=== PATIENT | male | born 1970 | race Caucasian/White ===

== ENCOUNTER → 2019-04-03 16:01 | Outpatient (CLI) | payer OTHER, SELFPAY ==
[2015-11-08 12:10] VITALS: BMI 26.6
--- NOTE | 2019-04-03 16:06 | RAD_ITS ---
STUDY: X-RAY - PELVIS AND LEFT HIP REASON FOR EXAM: Chronic hip pain, recently worsening, no specific injury. TECHNIQUE: 2 views of the pelvis and hip. COMPARISON: Radiographs 03/09/2015. FINDINGS: There is interval development of a small soft tissue calcification at the inferior lateral aspect of the left obturator ring. Normal bilateral iliac wings, sacroiliac joints and visualized sacrum. Normal bilateral superior and inferior pubic rami. Normal pubic symphysis. Normal bilateral ischial tuberosities. There is an osteochondroma of the medial aspect of the left femoral neck with no significant change. There is a small marginal osteophyte of the lateral aspect of the left acetabulum. Normal left hip joint. RAD/HIP, UNI W/ Pelvis 2-3 Views IMPRESSION: Osteochondroma of the left femoral neck. Small soft tissue calcification at the inferior lateral aspect of the left obturator ring. Electronically Signed: Dexter Franz MD at 15:30 EST Tel , Service support ,
== END ==
PROVIDERS: PCP Family Medicine; Referring Provider Family Medicine; Visit Provider Family Medicine
DX: M25.552 Pain in left hip (principal)
CPT/HCPCS: 73502

== ENCOUNTER → 2019-04-09 07:15 | Outpatient (CLI) | payer OTHER, SELFPAY ==
[2019-04-09 10:26] LABS: Anion Gap 5 (5-15); BUN 16 mg/dL (7-18); BUN/Creat Ratio 18.4 RATIO (10-20); Calcium,Total 8.9 mg/dL (8.5-10.1); Chloride 109 mmol/L (98-107); Cholesterol 201 mg/dL (200); Creatinine, Serum 0.87 mg/dL (0.70-1.30); EST Glomerular Filtration Rate 99 mL/min (>60); Est Glom Filt Rate - Afr Amer 120 mL/min (>60); Glucose 83 mg/dL (74-106); High Density Lipoprotein 77 mg/dL; Potassium 4.1 mmol/L (3.5-5.1); Sodium Level 143 mmol/L (136-145); Triglycerides 45 mg/dL; Very Low Density Lipoprotein 9 mg/dL (5-40)
[2019-04-09 12:14] LABS: Vitamin D,25 Hydroxy 28.7 ng/mL
== END ==
PROVIDERS: PCP Family Medicine; Referring Provider Family Medicine; Visit Provider Family Medicine
DX: Z00.00 Encounter for general adult medical examination without abnormal findings (principal)
CPT/HCPCS: 36415; 80048; 80061; 82306

== ENCOUNTER 2021-03-25 10:47 | Emergency (ER) | payer OTHER, SELFPAY ==
[2021-03-25 10:50] VITALS: BP 141/93; PULSE 67; RESP 17; TEMP 36.4; O2SAT 98; BMI 25.4
--- NOTE | 2021-03-25 11:32 | US_ITS ---
STUDY: SCROTUM ULTRASOUND REASON FOR EXAM: Male, 50 years old. Trauma, Pain, Swelling TECHNIQUE: Ultrasound evaluation of the scrotum was performed with color Doppler and static ozuna-scale imaging. COMPARISON: Comparison is made with prior study date 03/25/2013. FINDINGS: RIGHT TESTICLE INTRATESTICULAR: There is a normal size of the right testicle. The right testicle measures 4.8 cm x 3.7 cm x 2.8 cm. There is a homogenous echotexture. There is normal arterial and normal venous vascularity. There is no demonstrated right testicular mass or cyst. EXTRATESTICULAR: The epididymis is normal in size. The epididymis head measures 0.5 cm x 1.3 cm x 1.2 cm. There is normal vascularity of the epididymis. There is a well-defined cystic structure within the epididymis, without internal echoes, consistent with an epididymal cyst. This measures 6 mm x 5 mm x 5 mm. There is a large hydrocele. There is no demonstrated varicocele. There is no demonstrated extratesticular mass or cyst. LEFT TESTICLE INTRATESTICULAR: There is a normal size of the left testicle. The left testicle measures 4.2 cm x 3.7 cm x 2.2 cm. There is a homogenous echotexture. There is normal arterial and normal venous vascularity. There is a 4 mm x 3 mm x 3 mm left testicular cyst. EXTRATESTICULAR: The epididymis is normal in size. The epididymis head measures 1.3 cm x 1.6 cm x 60.7 cm. There is normal vascularity of the epididymis. There is a well-defined cystic structure within the epididymis, without internal echoes, consistent with an epididymal cyst. This measures 4 mm x 7 mm x 3 mm. There is a large hydrocele. There is no demonstrated varicocele. There is no demonstrated extratesticular mass or cyst. US/Testicular with Arterial Flow IMPRESSION: Bilateral large hydroceles. Small cyst in the left testicle. Small bilateral epididymal cysts. Electronically Signed: Valeriano Sin MD at 13:12 EST ,
--- NOTE | 2021-03-25 11:32 | EX.ED.GUMALE ---
HPI History of Present Illness Chief Complaint: Male Pain/Injury Narrative Narrative: Patient denies significant past medical history presents with his for a work-related injury that he sustained at around noon yesterday. He states that he was hanging onto a board, and someone moved another board beneath him. He ended up straddling a steel machinery part. He has pain and swelling to his scrotum/both testicles. He denies other injury. He denies any penile discharge or dysuria, no hematuria. PFSH PFSH Medical History no medical history Home Medications flavoring agent (bulk) [Cinnamon] 1,000 mg PO BID 10/06/15 [History Last Taken Unknown] multivitamin with folic acid [Thera] 1 tab PO DAILY 10/06/15 [History Last Taken Unknown] ascorbic acid (vitamin C) [Vitamin C with Svitlana Hips] 500 mg PO DAILY 11/08/15 [History Last Taken Unknown] coenzyme Q10 200 mg PO DAILY 11/08/15 [History Last Taken Unknown] lansoprazole [Prevacid] 20 mg DAILY 11/08/15 [History Last Taken Unknown] prednisone 10 mg PO DAILY 11/08/15 [History Last Taken Unknown] vitamin E 400 unit PO DAILY 11/08/15 [History Last Taken Unknown] Allergy/AdvReac Type Severity Reaction Status Date / Time Penicillins AdvReac Other Verified 03/25/21 10:48 Social History Smoking Status: Never smoker ROS ROS ED ROS Narrative Constitutional: No fever, no chills. HEENT: No sore throat. No neck pain. No loss of vision. No rhinorrhea. Cardiovascular: No chest pain. No palpitations. No pedal edema. Respiratory: No cough, no shortness of breath. Abdominal: No abdominal pain. No nausea. No vomiting. Genitourinary: No dysuria. No hematuria. Positive testicular/scrotum pain and swelling. Musculoskeletal: No myalgias. No arthralgias. Neurologic: No headaches. No dizziness. No lightheadedness. Skin: No rash. No change in color. Psychiatric: No depression. No anxiety. EXAM Physical Exam Narrative Exam Narrative: Afebrile. Vital signs noted. HEENT: Normocephalic. Atraumatic. PERRL, EOMI. Neck soft and supple. No point tenderness or step off. Cardiovascular: Regular rate and rhythm. No murmurs, rubs, or gallops appreciated. Respiratory: No tachypnea. Lungs clear to auscultation bilaterally. Gastrointestinal: Abdomen soft, nontender, with normoactive bowel sounds. No rebound or guarding. Neurological: Awake. Alert. Nonfocal, nonlateralizing. Skin: No rash. Normal color. No pallor. Musculoskeletal: No pedal edema. Full range of motion extremities. Genitourinary: Chaperoned examination reveals diffuse swelling to the scrotum with testicular tenderness bilaterally. Const Vital Signs: 03/25/21 10:50 03/25/21 13:13 Temperature 97.6 F L Temperature Source Temporal Pulse Rate 67 55 L Respiratory Rate 17 16 Blood Pressure 141/93 H 128/91 H Blood Pressure Mean 109 103 Pulse Ox 98 100 Oxygen Delivery Method Room Air Room Air MDM MDM MDM Narrative Medical decision making narrative: Suspicion is high for hydrocele versus hematoma of the scrotum. Ultrasound was obtained of the testicles with arterial flow. Additionally, he declined any analgesics. Ultrasound has returned. There are bilateral large hydroceles. There is a small cyst in the left testicle but good blood flow. He has small bilateral epididymal cysts. At this point in time, I do feel that he can be discharged home to follow-up with Dr. Cantor. He was told he may need surgical drainage of his large hydroceles. He can wear more constricting undergarments as needed for support of his testicles. Return instructions to the emergency department were reviewed. Disposition is discharged home in stable condition. Radiography Diagnostic Testing: Clinical Impression(s) from Imaging Studies Testicular Ultrasound 03/25/21 11:32 IMPRESSION: Bilateral large hydroceles. Small cyst in the left testicle. Small bilateral epididymal cysts. Electronically Signed: Valeriano Sin MD at 13:12 EST , Discharge Plan Triage Chief Complaint: Male Pain/Injury ED Provider: Valeriy Carbajal Dx/Rx/DC Orders Clinical Impression: Contusion of scrotum and testes, initial encounter, Hydrocele Instructions: ED Hydrocele, Type Not Specified, ED Contusion, Testicles or Scrotum Prescriptions: No Action Cinnamon Flavoring 3.7 ML oil 1,000 mg PO BID RF: 0 multivitamin with folic acid [Thera] 1 TABLET tablet 1 tab PO DAILY RF: 0 prednisone 10 MG tablet 10 mg PO DAILY RF: 0 ascorbic acid (vitamin C) [Vitamin C With Svitlana Hips] 500 MG tablet 500 mg PO DAILY RF: 0 lansoprazole [Prevacid] 15 MG capsule 20 mg DAILY RF: 0 vitamin E 400 UNIT capsule 400 unit PO DAILY RF: 0 coenzyme Q10 200 MG capsule 200 mg PO DAILY RF: 0 Primary Care Provider: John Garcia Referrals: Grover Cantor MD [STAFF PHYSICIAN] - 5-7 Days John Garcia MD [Primary Care Provider] - Disposition Disposition: Home, Self Care
[2021-03-25 13:13] VITALS: BP 128/91; PULSE 55; RESP 16; O2SAT 100
--- NOTE | 2021-03-25 14:23 | ED.RN ---
angelia filled out even though accident/fall happened yest. 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 awaiting for dr return to work form for omari.
== END 2021-03-25 14:43 | disposition home or self-care (01) ==
PROVIDERS: Emergency Provider Emergency Medicine; PCP Family Medicine; Visit Provider Emergency Medicine
DX: S30.22XA Contusion of scrotum and testes, initial encounter (principal); N44.2 Benign cyst of testis; N43.3 Hydrocele, unspecified; W31.9XXA Contact with unspecified machinery, initial encounter; Y93.9 Activity, unspecified; Y92.9 Unspecified place or not applicable
CPT/HCPCS: 76870; 93976; 99282

== ENCOUNTER → 2021-09-28 | Outpatient (CLI) | payer OTHER, SELFPAY ==
--- NOTE | 2021-09-28 06:10 | EKG12_ITS ---
Test Reason : PRE OP Blood Pressure : / mmHG Vent. Rate : 053 BPM Atrial Rate : 053 BPM P-R Int : 182 ms QRS Dur : 084 ms QT Int : 400 ms P-R-T Axes : 065 048 067 degrees QTc Int : 375 ms Sinus bradycardia Otherwise normal ECG Confirmed by SHELLY HENDERSON, MARIANO ([id number]), editor dictionary AMANDA GARCIA ([id number]) on 09/28/2021 12:54:25 PM Referred By: Grover Cantor Confirmed By:MARIANO BRAVO MD
[2021-09-28 07:51] LABS: Hematocrit 43.8 % (40-54); Hemoglobin 14.8 g/dL (13.0-16.5); Mean Corp Hgb Conc 33.8 g/dL (32-36); Mean Corpuscular Hgb 32.5 pg (27.0-32.0); Mean Corpuscular Volume 96.1 fL (80-94); Platelet Count 219 K/mm3 (150-450); RBC Distribution Width CV 12.6 % (11.6-14.6); RBC Distribution Width SD 44.1 fl (35.1-43.9); Red Blood Count 4.56 M/mm3 (4.6-6.2); White Blood Count 4.3 K/mm3 (4.4-11.0)
[2021-09-28 08:31] LABS: Anion Gap 5 (5-15); BUN 20 mg/dL (7-18); BUN/Creat Ratio 22.5 RATIO (10-20); Calcium,Total 8.9 mg/dL (8.5-10.1); Chloride 107 mmol/L (98-107); Creatinine, Serum 0.89 mg/dL (0.70-1.30); EST Glomerular Filtration Rate 96 mL/min (>60); Est Glom Filt Rate - Afr Amer 116 mL/min (>60); Glucose 111 mg/dL (74-106); Potassium 3.6 mmol/L (3.5-5.1); Sodium Level 142 mmol/L (136-145)
== END | disposition home or self-care (01) ==
PROVIDERS: PCP Family Medicine; Referring Provider Urology; Visit Provider Urology
DX: Z01.812 Encounter for preprocedural laboratory examination (principal); Z01.810 Encounter for preprocedural cardiovascular examination
CPT/HCPCS: 36415; 80048; 85027; 93005

== ENCOUNTER 2024-07-13 12:55 | Emergency (ER) | payer BC, SELFPAY ==
[2024-07-13 12:55] VITALS: BP 161/100; PULSE 58; RESP 16; TEMP 36.4; O2SAT 99; BMI 30.2
--- NOTE | 2024-07-13 13:09 | EX.ED.UPPERE ---
HPI <MORGAN Rasheed - Last Filed: 07/13/24 15:04> History of Present Illness Chief Complaint: Upper Extremity Injury Narrative Narrative: 54-year-old male injured his right elbow 2 weeks ago. He was 8 foot high on a ladder trimming a tree branch and the branch got caught in the ladder causing him to fall. The main impact was on his right elbow. He had significant swelling and bruising on the inner bicep/elbow area and bruising along the forearm. There was a scrape but no laceration. No head injury. He really did not have much pain and he states the swelling has significantly gone down, but since there is still a hard knot of swelling present he went to urgent care today. They did not have any imaging available and also were concerned about a blood clot. Patient has no history of DVT/PE and no risk factors for blood clot. He is not on blood thinners. PFSH <MORGAN Rasheed - Last Filed: 07/13/24 15:04> PFS Medical History no medical history Home Medications ?Medication ?Instructions ?Recorded ?Last Taken ?Type flavoring agent (bulk) (Cinnamon 1,000 mg PO BID 10/06/15 Unknown History Flavoring oil) multivitamin with folic acid 400 1 tab PO DAILY 10/06/15 Unknown History mcg tablet (Thera) ascorbic acid (vitamin C) 500 mg 500 mg PO DAILY 11/08/15 Unknown History tablet (Vitamin C With Svitlana Hips) coenzyme Q10 200 mg capsule 200 mg PO DAILY 11/08/15 Unknown History lansoprazole 15 mg capsule,delayed 20 mg DAILY 11/08/15 Unknown History release (Prevacid) prednisone 10 mg tablet 10 mg PO DAILY 11/08/15 Unknown History vitamin E 268 mg (400 unit) capsule 400 unit PO DAILY 11/08/15 Unknown History Allergy/AdvReac Type Severity Reaction Status Date / Time Penicillins AdvReac Other Verified 07/13/24 12:56 Social History Smoking Status: Never smoker ROS <MORGAN Rasheed - Last Filed: 07/13/24 15:04> ROS ED ROS Narrative Constitutional: Negative for fever, chills, malaise. CVS: Negative for chest pain. Respiratory: Negative for shortness of breath. Neuro: Negative for motor/sensory dysfunction. Musc: Negative for joint pain. EXAM <MORGAN Rasheed - Last Filed: 07/13/24 15:04> Physical Exam Narrative Exam Narrative: CONST: Patient sitting in no acute distress. EYES: Normal inspection. NECK: Normal inspection. RESP: No respiratory distress, CTAB. CVS: Regular rate and rhythm, no murmur, no gallop. SKIN: Color normal, no rash, warm, dry, intact. EXTREMITIES: Right upper extremity without gross deformity. There is a golf sized firm enlargement on the right medial bicep just proximal to the elbow. Nontender. No overlying erythema, warmth, no crepitus or fluctuance. He has no bony tenderness of the shoulder humerus elbow forearm wrist or hand. He has full range of motion of all joints. 2+ radial pulses. Normal motor and sensory function in median radial and ulnar distributions. NEURO: Alert and answering questions appropriately. PSYCH: Normal affect. Const Vital Signs: 07/13/24 12:55 Temperature 97.5 F L Temperature Source Temporal Pulse Rate 58 L Respiratory Rate 16 Blood Pressure 161/100 H Blood Pressure Mean 120 Pulse Ox 99 Oxygen Delivery Method Room Air MDM <MORGAN Rasheed - Last Filed: 07/13/24 15:04> [facility] MDM Narrative Medical decision making narrative: Patient fell off a ladder 2 weeks ago and injured his right elbow. He had swelling and bruising over the distal medial bicep which has been improving but not resolved prompting him to seek evaluation. He has a golf ball sized area that is firm to touch that is consistent with a hematoma. No compartment syndrome. No signs of infection. It is not consistent with a DVT. He has full range of motion and is neurovascular intact. Elbow x-ray is negative. I discussed conservative management for hematoma and he was discharged in stable condition. Differential includes hematoma, fracture. History and exam are not consistent with DVT and he has no risk factors for blood clots so ultrasound imaging is not indicated. I have personally performed a face to face assessment of the patient and have reviewed the JESIKA Note. I performed a substantive portion of the visit including all aspects of the following. My ortiz findings include: History is 54-year-old male fell from a ladder about 2 weeks ago injuring his right upper extremity around the elbow. He said there was a lot of bruising. Most of that has resolved he still has a hematoma proximal to his right elbow on the medial aspect. Today was seen in urgent care they were concerned it was a blood clot and sent him in the emergency department. He denies any trouble moving his arm. No other complaints. Exam is [54-year-old male vital signs stable afebrile. H EENT exam pupils round reactive light. No trauma to his face or scalp. Nontender no hematoma. Neck nontender trachea midline. Back nontender. Lungs clear. Heart regular rhythm rate about 60 no murmur. Chest wall ribs nontender. Abdomen soft nontender. Pelvic girdle intact. Moving all 4 extremities. Neurovascularly intact. Normal range of motion. The right elbow medially and proximally there is a hematoma the size of a $0.50 piece. Mildly tender. There is no bony deformity. He has full flexion-extension rotation of his right shoulder. Full flexion extension supination and pronation of the right elbow with no bony deformity. Right forearm, wrist and hand are nontender. Normal radial pulse. No swelling. 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 Normal sensation. Neurologic exam is normal. He is awake and alert. Answering questions following commands. GCS 15.] Medical Decision Making [54-year-old male has a right arm hematoma. X-ray is going to be obtained bindings is just a soft tissue hematoma. Will rule out fracture.] Other additions or changes: [None] <Dr. Paul Mulligan MD - Last Filed: 07/13/24 13:25> [facility] Narrative Medical decision making narrative: I have personally performed a face to face assessment of the patient and have reviewed the JESIKA Note. I performed a substantive portion of the visit including all aspects of the following. My ortiz findings include: History is 54-year-old male fell from a ladder about 2 weeks ago injuring his right upper extremity around the elbow. He said there was a lot of bruising. Most of that has resolved he still has a hematoma proximal to his right elbow on the medial aspect. Today was seen in urgent care they were concerned it was a blood clot and sent him in the emergency department. He denies any trouble moving his arm. No other complaints. Exam is [54-year-old male vital signs stable afebrile. H EENT exam pupils round reactive light. No trauma to his face or scalp. Nontender no hematoma. Neck nontender trachea midline. Back nontender. Lungs clear. Heart regular rhythm rate about 60 no murmur. Chest wall ribs nontender. Abdomen soft nontender. Pelvic girdle intact. Moving all 4 extremities. Neurovascularly intact. Normal range of motion. The right elbow medially and proximally there is a hematoma the size of a $0.50 piece. Mildly tender. There is no bony deformity. He has full flexion-extension rotation of his right shoulder. Full flexion extension supination and pronation of the right elbow with no bony deformity. Right forearm, wrist and hand are nontender. Normal radial pulse. No swelling. 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 Normal sensation. Neurologic exam is normal. He is awake and alert. Answering questions following commands. GCS 15.] Medical Decision Making [54-year-old male has a right arm hematoma. X-ray is going to be obtained bindings is just a soft tissue hematoma. Will rule out fracture.] Other additions or changes: [None] History & Record Review Discussion w/independent historian: Patient and Family Additional record(s) reviewed:: Prior inpatient record, Prior outpatient record, Prior ED visit and Prior labs Radiography Diagnostic Testing: Right elbow x-ray, 3 views, reviewed by myself shows no acute fracture or dislocation. Soft tissue swelling. Discharge Plan Triage Chief Complaint: Upper Extremity Injury ED Midlevel Provider: Ela Fry ED Provider: Paul Mulligan Dx/Rx/DC Orders Clinical Impression: Contusion of elbow, right, Hematoma Instructions: ED Contusion, Elbow, ED Hematoma Prescriptions: No Action Cinnamon Flavoring 3.7 ML oil 1,000 mg PO BID multivitamin with folic acid [Thera] 1 TABLET tablet 1 tab PO DAILY prednisone 10 MG tablet 10 mg PO DAILY ascorbic acid (vitamin C) [Vitamin C With Svitlana Hips] 500 MG tablet 500 mg PO DAILY lansoprazole [Prevacid] 15 MG capsule 20 mg DAILY vitamin E 400 UNIT capsule 400 unit PO DAILY coenzyme Q10 200 MG capsule 200 mg PO DAILY Primary Care Provider: John Garcia Referrals: John Garcia MD [Primary Care Provider] - As Needed Activity Restrictions/Additional Instructions: You have a soft tissue collection of blood called a hematoma of your right elbow. There is no fracture or dislocation. This may take several weeks to resolve. Ice to the area. Warm compresses. Motrin for any pain or swelling. This should progressively get better over the next several weeks. Print Language: Swedish Disposition Disposition: Home, Self Care Discharge Date/Time: 07/13/24 14:03
--- NOTE | 2024-07-13 13:35 | RAD_ITS ---
PROCEDURE: ELBOW MIN 3 VIEWS 07/13/2024 REASON FOR EXAM: RIGHT TECHNIQUE: Three views of the right elbow. COMPARISON: None. FINDINGS: No evidence of acute fracture or dislocation. Mild degenerative changes of the elbow. No elbow joint effusion. Olecranon enthesophyte. RAD/Elbow min 3 Views IMPRESSION: No acute osseous abnormality. Reading Location: [place] [id number]
[2024-07-13 14:00] VITALS: BP 138/78; PULSE 58; RESP 16; TEMP 36.4; O2SAT 99
== END 2024-07-13 14:03 | disposition home or self-care (01) ==
PROVIDERS: Emergency Provider Emergency Medicine; PCP Family Medicine; Visit Provider Emergency Medicine
DX: S50.01XA Contusion of right elbow, initial encounter (principal); W11.XXXA Fall on and from ladder, initial encounter; Y93.89 Activity, other specified
CPT/HCPCS: 73080; 99282

== ENCOUNTER → 2024-11-07 | Outpatient (CLI) | payer BC, SELFPAY ==
--- OUTSIDE RECORDS SUMMARY | 2024-11-07 12:36 | XMS RPT_ITS | CCD ---
Author Organization [facility] Care Team Providers Care Svp Group Director Name Role Phone Jose HENDERSON, Dr. Lopez Primary Care Provider Dr. Paul Mulligan MD Emergency Provider [phone] Unavailable Primary Care Provider UnavailJENNI Obregon Attending Unavailable John Garcia Primary Care Unavailable Paul Mulligan Attending Unavailable Allergies Allergy Classification Reported Allergen(s) Allergy Type Date of Onset Reaction(s) Facility (2 sources) Penicillins Propensity to adverse reactions 2 Other [facility] Comment on above: MAKES ME SLEEPY (2 sources) Penicillin G; Translations: [PENICILLIN G] Drug Allergy 5 Mental Status Change, Other: See Comments [facility] Work Phone: (1 source) Penicillins Drug allergy (disorder) 5 [facility] Repository Medications Current Medications Medication Drug Class(es) Dates Sig (Normalized) Sig (Original) ascorbic acid 500 mg oral tablet (3 sources) Vitamin C Start: 11-08-2015 take 1 tablet by mouth once daily Ascorbic Acid (Vitamin C) (Vitamin C With Svitlana Hips) 500 MG tablet Active 500 mg PO DAILY November 08, 2015 12:00am cinnamon bark 1000 mg oral capsule (1 source) take 1000 mg by mouth twice daily CINNAMON BARK (CINNAMON ORAL) Take 1,000 mg by mouth twice daily. Active Flavoring Agent (Bulk) (Cinnamon) 3.7 ML oil (2 sources) Start: 10-06-2015 take 1000 mg by mouth twice daily Flavoring Agent (Bulk) (Cinnamon) 3.7 ML oil Active 1000 mg PO TWICE A DAY October 06, 2015 12:00am Start: 10-06-2015 take 1000 mg by mout h twice daily Flavoring Agent (Bulk) (Cinnamon) 3.7 ML oil Active 1000 MG PO TWICE A DAY October 06, 2015 12:00am lansoprazole 15 mg delayed release oral capsule (3 sources) Proton Pump Inhibitor Start: 11-08-2015 Lansoprazole (Prevacid) 15 MG capsule Active 20 mg DAILY November 08, 2015 12:00am take 20 mg by mouth once daily L ANSOPRAZOLE (PREVACID ORAL) Take 20 mg by mouth once daily. Active Multivitamin With Folic Acid (Thera) 1 TABLET tablet (2 sources) Start: 10-06-2015 take 1 tablet by mouth once daily Multivitamin With Folic Acid (Thera) 1 TABLET tablet Active 1 {tbl} PO DAILY October 06, 2015 12:00am Start: 10-06-2015 take 1 tablet by rian th once daily Multivitamin With Folic Acid (Thera) 1 TABLET tablet Active 1 TABLET PO DAILY October 06, 2015 12:00am OTC NUTRITIONAL SUPPLEMENT (1 source) OTC NUTRITIONAL SUPPLEMENT Al Carnipine 500 mg daily Active predniSONE 10 mg oral tablet (2 sources) Start: 11-08-2015 take 1 tablet by mouth once daily Prednisone 10 MG tablet Active 10 mg PO DAILY November 08, 2015 12:00am ubidecarenone 200 mg oral capsule (3 sources) Start: 11-08-2015 take 10 capsules by mouth once daily Coenzyme Q10 200 MG capsule Active 200 mg PO DAILY November 08, 2015 12:00am take 10 capsules by mouth once d aily coenzyme Q10 (Q-SORB CO Q-10) 100 mg cap Take 200 mg by mouth once daily. Active vitamin e 180 mg oral capsule (3 sources) Start: 11-08-2015 take 1 capsule by mouth once daily Vitamin E 400 UNIT capsule Active 400 U PO DAILY November 08, 2015 12:00am Problems Active Problems Problem Classification Problem Date Documented Da te Episodic/Chronic Other injuries and conditions due to external causes (1 source) Hematoma; Translations: [Other injury of unspecified body region, initial encounter] 07-13-2024 Episodic Other male genital disorders (2 sources) Disorder of male genital organ; Translations: [Hydrocele, unspecified] 04-02-2021 Episodic Other skin disorders (1 source) Mass of upper limb; Translations: [Localized swelling, mass and lump, right upper limb] 07-13-2024 Episodic Other skin disorders (1 source) Localized swelling, mass and lump, right upper limb; Translations: [Mass of right upper extremity] Onset: 07-13-2024 Episodic Superficial injury; contusion (4 sources) Contusion of male genital organs; Translations: [Contusion of scrotum and testes, initial encounter] Onset: 07-17-2024 04-02-2021 Episodic Past or Other Problems Problem Classification Problem Date Documented Da te Episodic/Chronic Contraceptive and procreative management (1 source) Patient encounter status; Translations: [Encounter for fertility testing] Onset: 05-15-2014 05-15-2014 Episodic Results Test Name Value Interpretation Reference Range Facil itmorena STARKSon 07-13-2024 CNOV Office Visit (UCTR) YEYO CARUSO ([id number]) 1970 M Date Time Provider Department 07/13/24 12:15 PM JENNI VASQUES [facility] During your visit today, we recorded the following information about you: Temperature Pulse Respiration Blood pressure 97.2 degrees 64/minute 16/minute 120/62 Weight 82.4 kg Jenni Vasques APRN.CNP 07/13/2024 12:33 PM Signed [facility] Subjective Yeyorenae Caruso is a 54 year old male. Patient presents with: Arm Injury: right arm injury x 2 weeks ago, fell of ladder has knot on upper arm HPI Right Arm Mass: - Noticed a mass on the right arm approximately two weeks ago after falling from an 8-foot ladder. - Denies head trauma during the fall; landed on the right arm. - Mass is described as hard and about the size of a golf ball, located on the inner arm above the elbow. - Initially presented as a severe bruise; no open wounds. - Denies erythema, warmth, or significant pain; reports mild discomfort and tightness when fully flexing the arm. - Concerned about the possibility of a blood clot. - Denies swelling or loss of sensation distal to the mass. - Primary care provider is Dr. Garcia. Review of Systems Musculoskeletal: (+) right inner arm swelling, (+) right inner arm lump, (+) right arm pain with full flexion Skin: (-) right arm warmth Objective BP 120/62 Pulse 64 Temp 36.2 ?C (97.2 ?F) Resp 16 Wt 82.4 kg (181 lb 10.5 oz) SpO2 96% BMI 29.32 kg/m? Physical Exam General: No acute distress. MSK/Ext: Contusion on right inner arm above the elbow, approximately the size of a golf ball, no lymphangitic streaking, no erythema, no warmth, no swelling or loss of sensation distal to the area. {1. Mass of right upper extremity (R22.31) - Mass on right inner arm above the elbow, approximately the size of a golf ball; no lymphatic streaking observed. - Minimal tenderness reported with full flexion of the arm; no swelling or loss of sensation distal to the mass. - Differential diagnosis includes hematoma versus deep vein thrombosis (DVT). - Ordered ultrasound to rule out DVT. - Advised follow-up with primary care physician, Dr. Garcia, for further evaluation and management. - Patient informed about the importance of timely ultrasound; patient understands and agrees to contact PCP or visit the ER for evaluation due to upcoming travel. and Recording using [employer] software for draft documentation of the visit was discussed with the patient/authorized care support representative; all questions welcomed and answered. Patient/authorized care support representative agreed to proceed MDM Procedures Allergies As of Date: 07/13/2024 Noted Allergy Reaction PENICILLIN G 07/29/2014 1 - Mental Status Change 14 - Other: See Comments Comments: Excessive sleep Date Reviewed: 07/13/2024 Reviewed by: Reyna Miller MA - Fully Assessed Reason for Visit: Arm Injury [1958] Cmt: right arm injury x 2 weeks ago, fell of ladder has knot on upper arm Primary Visit Diagnosis:Mass of right upper extremity [R22.31] Prescriptions as of 07/13/2024 - ascorbic acid (VITAMIN C) 500 mg tablet Take 500 mg by mouth once daily. - coenzyme Q10 (Q-SORB CO Q-10) 100 mg cap Take 200 mg by mouth once daily. - CINNAMON BARK (CINNAMON ORAL) Take 1,000 mg by mouth twice daily. - OTC NUTRITIONAL SUPPLEMENT Al Carnipine 500 mg daily - VITAMIN E, DL,TOCOPHERYL ACET, (VITAMIN E, DL, ACETATE,) 400 unit cap Take 400 Units by mouth once daily. - LANSOPRAZOLE (PREVACID ORAL) Take 20 mg by mouth once daily. Problem List As Of Date 07/13/2024 Noted Resolved Fertility testing [Z31.41] 05/15/2014 Encounter Status:Closed by JENNI VASQUES on 07/13/24 Normal [facility] Elbow min 3 Viewson 07-14-19 Elbow min 3 Views [facility] Imaging Services [address] [place] [address] Elbow min 3 Views MR#: [id number] Acct: [id number] Name: YEYO CARUSO Rep #: [id number] : 1970 M 54 From: Luis Alberto Awad MD PCP: Dr. John Garcia MD Status: [facility] ER Study: Elbow min 3 Views Date of Exam: 07/13/24 Exam# [id number] Ordering Dr: Ela Fry PROCEDURE: ELBOW MIN 3 VIEWS 07/13/2024 REASON FOR EXAM: RIGHT TECHNIQUE: Three views of the right elbow. COMPARISON: None. FINDINGS: No evidence of acute fracture or dislocation. Mild degenerative changes of the elbow. No elbow joint effusion. Olecranon enthesophyte. RAD/Elbow min 3 Views IMPRESSION: No acute osseous abnormality. Reading Location: [place] [address] CC: Dr. 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 John Garcia MD Status:[facility] ER Location: ED HPI History of Present Illness Chief Complaint: Upper Extremity Injury Narrative Narrative: 54-year-old male injured his right elbow 2 weeks ago. He was 8 foot high on a ladder trimming a tree branch and the branch got caught in the ladder causing him to fall. The main impact was on his right elbow. He had significant swelling and bruising on the inner bicep/elbow area and bruising along the forearm. There was a scrape but no laceration. No head injury. He really did not have much pain and he states the swelling has significantly gone down, but since there is still a hard knot of swelling present he went to urgent care today. They did not have any imaging available and also were concerned about a blood clot. Patient has no history of DVT/PE and no risk factors for blood clot. He is not on blood thinners. PFSH PFS Medical History no medical history Home Medications ???Medication ???Instructions ???Recorded ???Last Taken ???Type flavoring agent (bulk) (Cinnamon 1,000 mg PO BID 10/06/15 Unknown H istory Flavoring oil) multivitamin with folic acid 400 1 tab PO DAILY 10/06/15 Unknown Hi story mcg tablet (Thera) ascorbic acid (vitamin C) 500 mg 500 mg PO DAILY 11/08/15 Unknown H istory tablet (Vitamin C With Svitlana Hips) coenzyme Q10 200 mg capsule 200 mg PO DAILY 11/08/15 Unknown H istory lansoprazole 15 mg capsule,delayed 20 mg DAILY 11/08/15 Unknown His tory release (Prevacid) prednisone 10 mg tablet 10 mg PO DAILY 11/08/15 Unknown Hi story vitamin E 268 mg (400 unit) capsule 400 unit PO DAILY 11/08/15 Unkn own History Allergy/AdvReac Type Severity Reaction Status Date / Time Penicillins AdvReac Other Verified 07/13/24 12:56 Social History Smoking Status: Never smoker ROS ROS ED ROS Narrative Constitutional: Negative for fever, chills, malaise. CVS: Negative for chest pain. Respiratory: Negative for shortness of breath. Neuro: Negative for motor/sensory dysfunction. Musc: Negative for joint pain. EXAM Physical Exam Narrative Exam Narrative: CONST: Patient sitting in no acute distress. EYES: Normal inspection. NECK: Normal inspection. RESP: No respiratory distress, CTAB. CVS: Regular rate and rhythm, no murmur, no gallop. SKIN: Color normal, no rash, warm, dry, intact. EXTREMITIES: Right upper extremity without gross deformity. There is a golf sized firm enlargement on the right medial bicep just proximal to the elbow. Nontender. No overlying erythema, warmth, no crepitus or fluctuance. He has no bony tenderness of the shoulder humerus elbow forearm wrist or hand. He has full range of motion of all joints. 2+ radial pulses. Normal motor and sensory function in median radial and ulnar distributions. NEURO: Alert and answering questions appropriately. PSYCH: Normal affect. Const Vital Signs: 07/13/24 12:55 Temperature 97.5 F L Temperature Source Temporal Pulse Rate 58 L Respiratory Rate 16 Blood Pressure 161/100 H Blood Pressure Mean 120 Pulse Ox 99 Oxygen Delivery Method Room Air MDM MDM MDM Narrative Medical decision making narrative: Patient fell off a ladder 2 weeks ago and injured his right elbow. He had swelling and bruising over the distal medial bicep which has been improving but not resolved prompting him to seek evaluation. He has a golf ball sized area that is firm to touch that is consistent with a hematoma. No compartment syndrome. No signs of infection. It is not consistent with a DVT. He has full range of motion and is neurovascular intact. Elbow x-ray is negative. I discussed conservative management for hematoma and he was discharged in stable condition. Differential includes hematoma, fracture. History and exam are not consistent with DVT and he has no risk factors for blood clots so ultrasound imaging is not indicated. I have personally performed a face to face assessment of the patient and have reviewed the JESIKA Note. I performed a substantive portion of the visit including all aspects of the following. My ortiz findings include: History is 54-year-old male fell from a ladder about 2 weeks ago injuring his right upper extremity around the elbow. He said there was a lot of bruising. Most of that has resolved he still has a hematoma proximal to his right elbow on the medial aspect. Today was seen in urgent care they were concerned it was a blood clot and sent him in the emergency department. He denies any trouble moving (more content not included)... Normal [facility] Basophil percentageon 2021 Chloride [Moles/Vol] 107 mmol/L 98-107 [facility] Work Phone: Glucose [Mass/Vol] 111 mg/dL 74-106 [facility] Work Phone: Comment on above: Fasting Glucose resu lt from 100 to 125 mg/dL suggests IMPAIRED HOMEOSTASIS per A.D.A. criteria. Potassium [Moles/Vol] 3.6 mmol/L 3.5-5.1 [facility] Work Phone: Sodium [Moles/Vol] 142 mmol/L 136-145 [facility] Work Phone: WBC (Bld) [#/Vol] 4.3 10*3/uL 4.4-11.0 [facility] Work Phone: Blood erythrocytes count (nu mber/volume)on 09-28-2021 RBC (Bld) [#/Vol] 4.56 10*6/uL 4.6-6.2 [facility] Work Phone: Blood hemoglobin measurement (mass/volume)on 09-28-2021 Hemoglobin (Bld) [Mass/Vol] 14.8 g/dL 13.0-16.5 [facility] Work Phone: Blood platelet mean volumeon 09-28-2021 Platelet mean volume (Bld) [Entitic vol] 10.0 fL 6.2-12.0 [facility] Work Phone: Determination of erythrocyte mean corpuscular volume (MCV)on 09-28-2021 MCV (RBC) [Entitic vol] 96.1 fL 80-94 [facility] Work Phone: Hematocrit Auto (Bld) [Volum e fraction]on 09-28-2021 Hematocrit (Bld) [Volume fraction] 43.8 % 40-54 [facility] Work Phone: Laboratory - Chemistry and C hemistry - challengeon 09-28-2021 CO2 [Moles/Vol] 30.0 mmol/L 21.0-32.0 [facility] Work Phone: Urea nitrogen/Creatinine [Mass ratio] 22.5 mg/mg 10-20 [facility] Work Phone: Laboratory - Hematology and Cell countson 09-28-2021 Erythrocyte distribution width (RBC) [Entitic vol] 44.1 fL 35.1-43.9 [facility] Work Phone: Erythrocyte distribution width (RBC) [Ratio] 12.6 % 11.6-14.6 [facility] Work Phone: MCH (RBC) [Entitic mass] 32.5 pg 27.0-32.0 [facility] Work Phone: MCHC Auto (RBC) [Mass/Vol]on 09-28-2021 MCHC (RBC) [Mass/Vol] 33.8 g/dL 32-36 [facility] Work Phone: No Panel Informationon 09-28 Estimated GFR (MDRD) Amer 116 mL/min >60 [facility] Work Phone: Comment on above: GFR Calc Estimated GFR (MDRD) Non-Af Amer 96 mL/min >60 [facility] Work Phone: Comment on above: Non- GFR Calc Platelets bldon 09-28-2021 Platelets (Bld) [#/Vol] 219 10*3/uL 150-450 [facility] Work Phone: Serum or plasma calcium valerie urement (mass/volume)on 09-28-2021 Calcium [Mass/Vol] 8.9 mg/dL 8.5-10.1 [facility] Work Phone: Serum or plasma creatinine m easurement (mass/volume)on 09-28-2021 Creatinine [Mass/Vol] 0.89 mg/dL 0.70-1.30 [facility] Work Phone: Comment on above: The validity of the calculated GFR & GFRAA in patients over 70 years has not been determined. Clinical correlation is essential. Serum or plasma urea nitroge n measurement (mass/volume)on 09-28-2021 Urea nitrogen [Mass/Vol] 20 mg/dL 7-18 [facility] Work Phone: Thin prep Papanicolaou smear with manual screeningon 09-28-2021 Thin prep Papanicolaou smear with manual screening 5 5-15 [facility] Work Phone: Elizabeth 03-30-2021 ANGELN Telephone (AKURFL) YEYO CARUSO ([id number]) 1970 M Date Time Provider Department 03/30/21 JUSTYNA CHAPARRO During your visit today, we recorded the following information about you: Carmela Hernandez 03/30/2021 8:14 AM Signed Pt confirmed his appt with Dr. Galan in [facility] 04/28/21 @ 3:00. Jennie Allergies As of Date: 03/30/2021 Noted Allergy Reaction PENICILLIN G 07/29/2014 1 - Mental Status Change 14 - Other: See Comments Comments: Excessive sleep Date Reviewed: 03/29/2021 Reviewed by: Gwen Sanchez LPN - Fully Assessed Reason for Visit: Appointment [186] Prescriptions as of 03/30/2021 - ascorbic acid (VITAMIN C) 500 mg tablet Take 500 mg by mouth once daily. - coenzyme Q10 (Q-SORB CO Q-10) 100 mg cap Take 200 mg by mouth once daily. - CINNAMON BARK (CINNAMON ORAL) Take 1,000 mg by mouth twice daily. - OTC NUTRITIONAL SUPPLEMENT Al Carnipine 500 mg daily - VITAMIN E, DL,TOCOPHERYL ACET, (VITAMIN E, DL, ACETATE,) 400 unit cap Take 400 Units by mouth once daily. - LANSOPRAZOLE (PREVACID ORAL) Take 20 mg by mouth once daily. Problem List As Of Date 03/30/2021 Noted Resolved Fertility testing [Z31.41] 05/15/2014 Encounter Status:Closed by CARMELA KUNZ on 03/30/21 Normal [facility] Vital Signs Date Time Vital Sign Value Performing Clinician Faci lity 07-13-2024 14:00-0400 Body temperature 97.5 [degF] Dr. John Garcia MD Work Phone: [facility] 07-13-2024 14:00-0400 Diastolic blood pressure 78 mm[Hg] Dr. John Garcia MD Work Phone: [facility] 07-13-2024 14:00-0400 Heart rate 58 /min Dr. John Garcia MD Work Phone: [facility] 07-13-2024 14:00-0400 SaO2% (BldA) [Mass fraction] 99 % Dr. John Garcia MD Work Phone: [facility] 07-13-2024 14:00-0400 Systolic blood pressure 138 mm[Hg] Dr. John Garcia MD Work Phone: [facility] 07-13-2024 12:55-0400 Body height 165.[address] John Garcia MD Work Phone: [facility] 07-13-2024 12:55-0400 Body mass index (BMI) [Ratio] 30.2 kg/m2 Dr. John Garcia MD Work Phone: [facility] 07-13-2024 12:55-0400 Body weight 82.[address] John Garcia MD Work Phone: [facility] 07-13-2024 12:20-0400 Body mass index (BMI) [Ratio] 29.32 kg/m2 Jenni Vasques APRN.CREDIT OPERATIONS SPECIALIST Work Phone: [facility] 07-13-2024 12:20-0400 Body temperature 97.2 [degF] Jenni Vasques APRN.CREDIT OPERATIONS SPECIALIST Work Phone: [facility] 07-13-2024 12:20-0400 Body weight 82.4 kg Jenni Vasques APRN.CREDIT OPERATIONS SPECIALIST Work Phone: [facility] 07-13-2024 12:20-0400 Diastolic blood pressure 62 mm[Hg] Jenni Vasques APRN.CREDIT OPERATIONS SPECIALIST Work Phone: [facility] 07-13-2024 12:20-0400 Heart rate 64 /min Jenni Vasques APRN.CREDIT OPERATIONS SPECIALIST Work Phone: [facility] 07-13-2024 12:20-0400 Respiratory rate 16 /min Dr. John Garcia MD Work Phone: [facility] 07-13-2024 12:20-0400 SaO2% (BldA) [Mass fraction] 96 % Jenni Vasques APRN.CREDIT OPERATIONS SPECIALIST Work Phone: [facility] 07-13-2024 12:20-0400 Systolic blood pressure 120 mm[Hg] Jenni Vasques APRN.CREDIT OPERATIONS SPECIALIST Work Phone: [facility] Encounters Encounter Date Encounter Type Care Provider Facility Start: 07-13-2024 End: 07-13-2024 Emergency department patient visit Dr. John Garcia MD Work Phone: -Emergency Department Work Phone: Start: 07-13-2024 End: 07-13-2024 Patient encounter procedure Jenni Vasques APRN.CREDIT OPERATIONS SPECIALIST Work Phone: [facility] Comment on above: Mass of right upper extremity (Primary Dx) Start: 07-13-2024 End: 07-13-2024 ambulatory JENNI VASQUES Facility:[facility] Start: 09-28-2021 End: 09-28-2021 ambulatory [facility] Work Phone: Start: 09-28-2021 End: 09-28-2021 Patient encounter procedure [facility]-Pulmonary Services/Neurology Procedures Date Procedure Procedure Detail Performing Clinician Start: 07-13-2024 Plain x-ray of elbow Dr Erich Garcia MD Work Phone: Plan of Treatment Date Care Activity Detail Author Start: 10-13-2024 Influenza vaccination Influenza Vaccine (Season Ended) [facility] Start: 07-13-2024 [facility] Start: 10-14-2023 Covid-19 Vaccine ( season) Covid-19 Vaccine ( season) [facility] Start: 04-25-2019 Pneumococcal Vaccine: 50+ (1 of 1 - PCV) Pneumococcal Vaccine: 50+ (1 of 1 - PCV) [facility] Start: 04-25-2019 Shingrix Vaccine (1 of 2) Shingrix Vaccine (1 of 2) [facility] Start: 07-29-2017 Diabetes Screening Diabetes Screening [facility] Start: 2014 Prostate specific antigen measurement Prostate Cancer Screening Discussion [facility] Start: 2014 Screening for malignant neoplasm of colon [facility] Start: 2004 Lipid panel Lipid Screening [facility] Start: 1988 Hepatitis B Vaccine (1 of 3 - 19+ 3-dose series) Hepatitis B Vaccine (1 of 3 - 19+ 3-dose series) [facility] Start: 1988 Urine microalbumin profile DTaP,Tdap,Td Vaccine (1 - Tdap) [facility] Start: 04-25-1987 Anxiety Screening Anxiety Screening [facility] Start: 04-25-1987 Depression Screening Depression Screening [facility] Start: 04-25-1987 Hepatitis C screening Hepatitis C Screening [facility] Start: 04-25-1987 HIV screening HIV Screening [facility] Patient Education ED Contusion, Elbow ED Hematoma [facility] Work Phone: Patient referral [facility] Work Phone: Payers Date Payer Category Payer Self-pay [id number] 2023 [facility] PPO [id number] 2023 Unknown [id number] 2015 Unknown [id number] Unknown [id number] Unknown [id number] Social History Date Type Detail Facility Start: 03-25-2021 Tobacco smoking stat us CAIS Unknown if ever smoked [facility] Work Phone: Start: 1970 Sex Assigned At Male [facility] Start: 03-29-2021 End: 07-13-2024 Tobacco smoking status NHIS Never smoked tobacco (finding) [facility] Start: 03-29-2021 Tobacco use and exposure Former smokeless tobacco user [facility] Start: 03-29-2021 Alcoholic beverage intake Current drinker of alcohol (finding) [facility] Start: 01-21-2020 End: 03-29-[address] of [address] [facility] Start: 01-21-2020 End: 03-29-[address] [facility] National Score (1-10 0), lower number is lower risk Not on file [facility] Start: 03-29-2021 Alcohol [facility] Start: 04-27-2021 Gender identity Identifies as male gender (finding) [facility] Start: 04-27-2021 Sexual orientation Heterosexual (harsha mazariegos) [facility] Functional Status Date Assessment Result Facility 07-29-2014 Are you deaf, or do you have serious difficulty hearing Yes 07/29/2014 1:22 PM Yadira Karimi Ma Yes [facility] 07-29-2014 Are you blind, or do you have serious difficulty seeing, even when wearing glasses No 07/29/2014 1:22 PM Yadira Karimi Ma No [facility] 07-29-2014 Do you have serious difficulty walking or climbing stairs No 07/29/2014 1:22 PM Yadira Karimi Ma No [facility] 07-29-2014 Do you have difficul ty dressing or bathing No 07/29/2014 1:22 PM EDT TimYadira norton Ma No [facility] 07-29-2014 Because of a physica l, mental, or emotional condition, do you have difficulty doing errands alone such as visiting a physician's office or shopping No 07/29/2014 1:22 PM EDT Ian CarlaYadira No [facility] Mental Status Date Assessment Result Facility 07-29-2014 Because of a physica l, mental, or emotional condition, do you have serious difficulty concentrating, remembering, or making decisions No 07/29/2014 1:22 PM EDT Ian CarlaYadira No [facility] Radiology Diagnostic study note 07-13-2024 Note Date & Type Note Facility 07-13-2024 Radiology Diagnostic study note [facility] Imaging Services [address] [place] [address] Elbow min 3 Views MR#: [id number] Acct: [id number] Name: YEYO CARUSO Rep #: [id number] : 1970 M 54 From: [place] Awad MD PCP: Dr. John Garcia MD Status: REG E R Study:Elbow min 3 Views Date of Exam: Exam# [id number] Ordering Dr: Ela Gay PROCEDURE: ELBOW MIN 3 VIEWS 07/13/2024 REASON FOR EXAM: RIGHT TECHNIQUE: Three views of the right elbow. COMPARISON: None. FINDINGS: No evidence of acute fracture or dislocation. Mild degenerative changes of the elbow. No elbow joint effusion. Olecranon enthesophyte. RAD/Elbow min 3 Views IMPRESSION: No acute osseous abnormality. Reading Location: [id number] CC: Dr. 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 Author Type: Nurse Practitioner Type: Progress Notes Filed: 07/13/2024 12:33 Note Text: [facility] Subjective Yeyo J Caruso is a 54 year old male. Patient presents with: Arm Injury: right arm injury x 2 weeks ago, fell of ladder has knot on upper arm HPI Right Arm Mass: - Noticed a mass on the right arm approximately two weeks ago after falling from an 8-foot ladder. - Denies head trauma during the fall; landed on the right arm. - Mass is described as hard and about the size of a golf ball, located on the inner arm above the elbow. - Initially presented as a severe bruise; no open wounds. - Denies erythema, warmth, or significant pain; reports mild discomfort and tightness when fully flexing the arm. - Concerned about the possibility of a blood clot. - Denies swelling or loss of sensation distal to the mass. - Primary care provider is Dr. Garcia. Review of Systems Musculoskeletal: (+) right inner arm swelling, (+) right inner arm lump, (+) right arm pain with full flexion Skin: (-) right arm warmth Objective BP 120/62 Pulse 64 Temp 36.2 ?C (97.2 ?F) Resp 16 Wt 82.4 kg (181 lb 10.5 oz) SpO2 96% BMI 29.32 kg/m? Physical Exam General: No acute distress. MSK/Ext: Contusion on right inner arm above the elbow, approximately the size of a golf ball, no lymphangitic streaking, no erythema, no warmth, no swelling or loss of sensation distal to the area. {1. Mass of right upper extremity (R22.31) - Mass on right inner arm above the elbow, approximately the size of a golf ball; no lymphatic streaking observed. - Minimal tenderness reported with full flexion of the arm; no swelling or loss of sensation distal to the mass. - Differential diagnosis includes hematoma versus deep vein thrombosis (DVT). - Ordered ultrasound to rule out DVT. - Advised follow-up with primary care physician, Dr. Garcia, for further evaluation and management. - Patient informed about the importance of timely ultrasound; patient understands and agrees to contact PCP or visit the ER for evaluation due to upcoming travel. and Recording using ambient [employer] software for draft documentation of the visit was discussed with the patient/authorized care support representative; all questions welcomed and answered. Patient/authorized care support representative agreed to proceed MDM Procedures [facility] History of Present illness Narrative 07-13-2024 Jenni Vasques APRN.[facility] - 07/13/2024 12:32 PM EDT Note Date & Type Note Facility 07-13-2024 History of Presen t illness Narrative [facility] Subjective Yeyo Caruso is a 54 year old male. Patient presents with: Arm Injury: right arm injury x 2 weeks ago, fell of ladder has knot on upper arm HPI Right Arm Mass: - Noticed a mass on the right arm approximately two weeks ago after falling from an 8-foot ladder. - Denies head trauma during the fall; landed on the right arm. - Mass is described as hard and about the size of a golf ball, located on the inner arm above the elbow. - Initially presented as a severe bruise; no open wounds. - Denies erythema, warmth, or significant pain; reports mild discomfort and tightness when fully flexing the arm. - Concerned about the possibility of a blood clot. - Denies swelling or loss of sensation distal to the mass. - Primary care provider is Dr. Garcia. Review of Systems Musculoskeletal: (+) right inner arm swelling, (+) right inner arm lump, (+) right arm pain with full flexion Skin: (-) right arm warmth Objective BP 120/62 Pulse 64 Temp 36.2 C (97.2 F) Resp 16 Wt 82.4 kg (181 lb 10.5 oz) SpO2 96% BMI 29.32 kg/m Physical Exam General: No acute distress. MSK/Ext: Contusion on right inner arm above the elbow, approximately the size of a golf ball, no lymphangitic streaking, no erythema, no warmth, no swelling or loss of sensation distal to the area. {1. Mass of right upper extremity (R22.31) - Mass on right inner arm above the elbow, approximately the size of a golf ball; no lymphatic streaking observed. - Minimal tenderness reported with full flexion of the arm; no swelling or loss of sensation distal to the mass. - Differential diagnosis includes hematoma versus deep vein thrombosis (DVT). - Ordered ultrasound to rule out DVT. - Advised follow-up with primary care physician, Dr. Garcia, for further evaluation and management. - Patient informed about the importance of timely ultrasound; patient understands and agrees to contact PCP or visit the ER for evaluation due to upcoming travel. and Recording using [employer] software for draft documentation of the visit was discussed with the patient/authorized care support representative; all questions welcomed and answered. Patient/authorized care support representative agreed to proceed MDM Procedures documented in this encounter [facility] Evaluation note Note Date & Type Note Facility Evaluation note No assessment information availa ble [facility] Work Phone: Evaluation note Note Date & Type Note Facility Evaluation note Diagnosis Mass of right upper extremity- Primary documented in this encounter [facility] Discharge instructions Note Date & Type Note Facility Hospital Discharge instructions Additional Instructions You have a soft tissue collection of blood called a hematoma of your right elbow. There is no fracture or dislocation. This may take several weeks to resolve. Ice to the area. Warm compresses. Motrin for any pain or swelling. This should progressively get better over the next several weeks. [facility] Work Phone: Reason for referral (narrative) Note Date & Type Note Facility Reason for referral (narrative) No reason for referral information available [facility] Work Phone: Summary Purpose Family History No Family History Records FoundNo Family History Records FoundNo Family History Records Found Advance Directives No Advanced Directives Records Found Advance Directive Response Recorded Date/ Time Advance Directives No October 06, 2015 10:18am Living Will No March 25 12:33pm Power of Roll Changer No March 25, 2021 12:33pm Advance Directive Response Recorded Date/ Time Do you have a Healthcare Power of Roll Changer? No July 13, 2024 2:00pm Advance Directives No October 06, 2015 10:18am Chief Complaint and Reason for Visit Chief Complaint PRE OP Chief Complaint Admit Date ELBOW SWELLING July 13, 2024 12:55 pm Additional Source Comments (unrecognized sect ion and content) No Status Records FoundNo Status Records FoundNo Status Records Found INFORMATION SOURCE (unrecogn ized section and content) DATE CREATED AUTHOR 03/30/2021 [facility] DATE CREATED AUTHOR AUTHOR'S ORGANIZ ATION 07/14/2024 [facility] DATE CREATED AUTHOR AUTHOR'S ORGANIZ ATION 07/18/2024 [facility] Goals (unrecognized section and content) Goals may be documented in a n alternate sectionGoals may be documented in an alternate section Care Teams (unrecognized sec tion and content) Team Status: Active Member Role Status Dates Dr. John Garcia MD Primary Care Provider Active Team Status: Inactive Member Role Status Dates Dr. John Garcia MD Primary Care Provider Active Start: July 13, 2024 End: July 13, 2024 Dr. Paul Mulligan MD Emergency Provider Active S tart: July 13, 2024 End: July 13, 2024 Source Comments (unrecognize d section and content) In the event this informatio n is protected by the Federal Confidentiality of Alcohol and Drug Abuse Patient Records regulations: The Federal rules restrict any use of the information to criminally investigate or prosecute any alcohol or drug abuse patient.[facility] Reason for Visit (unrecogniz ed section and content) Reason Comments Arm Injury right arm injury x 2 weeks ago, fell of ladder has knot on upper arm FOR RECORDS PERTAINING TO PATIENTS WHO ARE OR HAVE BEEN ENROLLED IN A CHEMICAL DEPENDENCY/SUBSTANCEABUSE PROGRAM, SOME INFORMATION MAY BE OMITTED. This clinical summary was aggregated from multiple sources. Caution should be exercised in using it in the provision of clinical care. This summary normalizes information from multiple sources, and as a consequence, information in this document may materially change the coding, format and clinical context of patient data. In addition, data may be omitted in some cases. CLINICAL DECISIONS SHOULD BE BASED ON THE PRIMARY CLINICAL RECORDS. [employer] [facility]. provides no warranty or guarantee of the accuracy or completeness of information in this document.
[2024-11-07 16:36] LABS: Cholesterol 203 mg/dL (<=200); Low Density Lipoprotein Calc. 132 mg/dL; PSA,Total- Diagnostic 0.30 ng/mL (0.00-4.00); Triglycerides 112 mg/dL; Very Low Density Lipoprotein 22 mg/dL (5-40); cholesterol:hdl ratio screen 4.13
[2024-11-07 17:01] LABS: Anion Gap 14 (5-15); BUN 14 mg/dL (4-19); BUN/Creat Ratio 16.4 RATIO (10-20); Calcium,Total 8.3 mg/dL (7.6-11.0); Carbon Dioxide 20.7 mmol/L (21.0-32.0); Chloride 105 mmol/L (98-108); Glucose 85 mg/dL (70-99); Potassium 4.2 mmol/L (3.3-5.1)
== END | disposition home or self-care (01) ==
LOC: MFPLAB 12:19
PROVIDERS: PCP Family Medicine; Referring Provider Family Medicine; Visit Provider Family Medicine
DX: Z00.00 Encounter for general adult medical examination without abnormal findings (principal)
CPT/HCPCS: 36415; 80048; 80061; 84153

== ENCOUNTER 2025-01-16 08:45 | Day surgery (SDC) | payer BC, SELFPAY ==
[2025-01-16] VITALS (7 sets, daily range): BP systolic 88–114; BP diastolic 71–81; PULSE 54–71; RESP 12–17; TEMP 36.1–36.5; O2SAT 94–99; BMI 28.3
--- NOTE | 2025-01-16 09:02 | PRE.ANES_ITS ---
ASA Classification* ASA Classification ASA Classification: 2 Assessment & Plan Anesthesia* Anesthesia Assessment Anesthesia Assessment: Discussed sedation and/or anesthesia options, risks, benefits, and alternatives with patient/parents/legal guardian/POA. Questions invited. The patient/parents/legal guardian/POA seems to understand and agrees to proceed with anesthesia plan. Reviewed the physical assessment, medical history, allergy history and patient home medications list prior to surgery/procedure/anesthetic and documented any changes. Performed airway and anesthesia risk assessments. Anesthesia Type Anesthesia Type: MAC Anesthesia Focused Assessment* Airway Assessment Mouth opens: >3 cm Mallampati Score: II Labs Anesthesia Preop lab: CBC WBC, (4.4-11.0) 4.3 K/mm3 L 09/28/21, 06:00 RBC, (4.6-6.2) 4.56 M/mm3 L 09/28/21, 06:00 Hgb, (13.0-16.5) 14.8 g/dL 09/28/21, 06:00 Hct, (40-54) 43.8 % 09/28/21, 06:00 Plt Count, (150-450) 219 K/mm3 09/28/21, 06:00 CHEMISTRY Potassium, (3.3-5.1) 4.2 mmol/L 11/07/24, 12:19 Sodium, (133-145) 139 mmol/L 11/07/24, 12:19 BUN, (4-19) 14 mg/dL 11/07/24, 12:19 Creatinine, (0.70-1.20) 0.87 mg/dL 11/07/24, 12:19 Glucose, (70-99) 85 mg/dL 11/07/24, 12:19 COAG Pre-Assessment Diagnosis/Proposed Procedure Planned Operative Procedure(s): COLONOSCOPY Anesthesia History 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 When Was Last Pacemaker Check QUESTION #4 FULL TEXT: You/Your Family Experience fever (hyperthermia) with Anesthesia Last Oral Intake Last Oral intake: Last Oral Intake NPO since Meds taken in AM with sips of water? Meds patient instructed to take am of surgery PONV PONV - feather mixer: PONV - feather mixer Female No 01/14/25 12:54 HX of Motion Sickness No 01/14/25 12:54 HX of N/V After Surgery No 01/14/25 12:54 Non-Smoker Yes 01/14/25 12:54 Duration of Surgery greater No 01/14/25 12:54 than 60 minutes Number of Risk Factors 1 01/14/25 12:54 PONV Score Low Risk 01/14/25 12:54 Height & Weight Height & Weight: Anesthesia: Height & Weight Height 5 ft 5 in 01/13/25 08:06 Respiratory Assessment Respiratory Assessment - feather mixer: Respiratory Tract Infection Hx - feather mixer Hx Respiratory Tract Infection No 01/14/25 12:54 STOP Sleep Apnea STOP Sleep Apnea - feather mixer: STOP Sleep Apnea - feather mixer Hx Hypertension No 01/14/25 12:54 Hx Sleep Apnea No 01/14/25 12:54 CPAP No 10/07/15 15:54 BIPAP No 04/18/13 07:02 Do you snore loudly (louder No 01/14/25 12:54 than talking or can be heard Do you often feel tired/ No 01/14/25 12:54 fatigued/ sleepy during daytime? Has anyone observed you stop No 01/14/25 12:54 breathing during sleep? STOP Results Negative 01/14/25 12:54 QUESTION #5 FULL TEXT : Do you snore loudly (louder than talking or can be heard through closed doors)? 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 Specify any problems Hx of Preganancy in last 3 N/A 01/14/25 12:54 Months Nurse Filling Out Transfusion [facility] 01/14/25 12:54 & Questions: Date: 01/14/25 12 12:54 Time: 12:58 01/14/25 12:54 Patient unable to answer at this time (ie. confused, unrespo /Reproduction History /Reproductive History - feather mixer: /Reproductive Hx- feather mixer Hx Now Gestational Age (in weeks): EDC: Hx Hx Para Hx Section SAB Does the father of the baby or his family experience fever w Father of the baby Malignant Hypertension history comment Active Medications Active Medications: Current Medications Generic Name Dose Route Start Last Admin Trade Name Freq PRN Reason Stop Dose Admin Lactated Ringer's 1,000 mls @ 15 mls/hr 01/16/25 09:00 IV .Q48H DESIRE PFSH Medical History Wears dentures Wears glasses Non-smoker Home Medications Medication Instructions Recorded Last Taken Type methocarbamol 500 mg tablet 500 mg PO TID PRN pain/spa sms #30 01/13/25 Unknown Rx tabs omeprazole 20 mg capsule,delayed 20 mg PO DAILY Unknown History release Allergy/AdvReac Type Severity Reaction Status Date / Time Penicillins AdvReac Other Verified 01/13/25 08:07 Family History Mother Diabetes Father Diabetes Surgical History 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
--- OUTSIDE RECORDS SUMMARY | 2025-01-16 09:10 | XMS RPT_ITS | CCD ---
Author Organization [facility] Inform ion Partnership [facility] Care Team Providers Care Solar [employer] Name Role Phone Jose HENDERSON, Dr. Lopez Primary Care Provider [phone] Dr. Paul Mulligan MD Emergency Provider Unavailable Primary Care Provider UnavailJENNI Obrgeon Attending Unavailable Jose, John Attending Unavailable John Garcia Referring Unavailable John Garcia Primary Care Unavailable John Garcia Primary Care Unavailable Paul Mulligan Attending Unavailable Gilbert Lima Attending Unavailable Jose, John Primary Care Unavailable Jose HENDERSON, Dr. Lopez Primary Care Physician [phone] Jose HENDERSON, Dr. Lopez Attending Physician Jose HENDERSON, Dr. Lopez Referring Provider [phone] Allergies Allergy Classification Reported Allergen(s) Allergy Type Date of Onset Reaction(s) Facility (3 sources) Penicillins Propensity to adverse reactions 2 Other [facility] Comment on above: MAKES ME SLEEPY (2 sources) Penicillin G; Translations: [PENICILLIN G] Drug Allergy 5 Mental Status Change, Other: See Comments [facility] Work Phone: (1 source) Penicillins Drug allergy (disorder) 5 [facility] Repository Medications Current Medications Medication Drug Class(es) Dates Sig (Normalized) Sig (Original) ascorbic acid 500 mg oral tablet (4 sources) Vitamin C Start: 11-08-2015 take 1 tablet by mouth once daily cinnamon bark 1000 mg oral capsule (1 source) take 1000 mg by mouth twice daily CINNAMON BARK (CINNAMON ORAL) Take 1,000 mg by mouth twice daily. Active Flavoring Agent (Bulk) (Cinnamon) 3.7 ML oil (3 sources) Start: 10-06-2015 take 1000 mg by mouth twice daily Start: 10-06-2015 take 1000 mg by mout h twice daily Flavoring Agent (Bulk) (Cinnamon) 3.7 ML oil Active 1000 mg PO TWICE A DAY October 06, 2015 12:00am Start: 10-06-2015 take 1000 mg by mout h twice daily Flavoring Agent (Bulk) (Cinnamon) 3.7 ML oil Active 1000 MG PO TWICE A DAY October 06, 2015 12:00am lansoprazole 15 mg delayed r elease oral capsule (4 sources) Proton Pump Inhibitor Start: 11-08-2015 take 20 mg by mouth once daily L ANSOPRAZOLE (PREVACID ORAL) Take 20 mg by mouth once daily. Active Multivitamin With Folic Acid (Thera) 1 TABLET tablet (3 sources) Start: 10-06-2015 take 1 tablet by rian th once daily Start: 10-06-2015 take 1 tablet by rian [...] daily Active predniSONE 10 mg oral tablet (3 sources) Start: 11-08-2015 take 1 tablet by mouth once daily ubidecarenone 200 mg oral capsule (4 sources) Start: 11-08-2015 take 10 capsules by mouth once daily take 10 capsules by mouth once d aily coenzyme Q10 (Q-SORB CO Q-10) 100 mg cap Take 200 mg by mouth once daily. Active vitamin e 180 mg oral capsul e (4 sources) Start: 11-08-2015 take 1 capsule by mo uth once daily Problems Active Problems Problem Classification Problem Date Documented Da te Episodic/Chronic Other injuries and conditions due to external causes (2 sources) Hematoma; Translations: [Other injury of unspecified body region, initial encounter] 07-13-2024 Episodic Other male genital disorders (3 sources) Disorder of male genital organ; Translations: [Hydrocele, unspecified] 04-02-2021 Episodic Other skin disorders (1 source) Mass of upper limb; Translations: [Localized swelling, mass and lump, right upper limb] 07-13-2024 Episodic Other skin disorders (1 source) Localized swelling, mass and lump, right upper limb; Translations: [Mass of right upper extremity] Onset: 07-13-2024 Episodic Superficial injury; contusion (6 sources) Contusion of male genital organs; Translations: [Contusion of scrotum and testes, initial encounter] Onset: 12-02-2024 04-02-2021 Episodic Past or Other Problems Problem Classification Problem Date Documented Da te Episodic/Chronic Contraceptive and procreative management (1 source) Patient encounter status; Translations: [Encounter for fertility testing] Onset: 05-15-2014 05-15-2014 Episodic Results Test Name Value Interpretation Reference Range Facility Anion gap in Serum or Plasma Ordered By: John Garcia on 11-07-2024 Anion gap [Moles/Vol] 14 mmol/L 06-26 [facility] BUN/creatinine ratioOrdered By: John Garcia on 11-07-2024 Urea nitrogen/Creatinine [Mass ratio] 16.4 mg/mg 12-01 [facility] Basic Metabolic Profile (BMP )on 11-07-2024 BUN/CRE 16.4 RATIO Normal 12-01 [facility] Comment on above: Performed By: #### L 500.2500, L501.9940, L500.4100 #### [facility] [address] [place], [address] Calcium [Mass/Vol] 8.3 mg/dL Normal 7.6-11.0 [facility] Comment on above: Performed By: #### L 500.2500, L501.9940, L500.4100 #### [facility] [address] [place], [address] Chloride [Moles/Vol] 105 mmol/L Normal 98-108 [facility] Comment on above: Performed By: #### L 500.2500, L501.9940, L500.4100 #### [facility] [address] [place], [address] CO2 [Moles/Vol] 20.7 mmol/L Low 21.0-32.0 [facility] Comment on above: Performed By: #### L 500.2500, L501.9940, L500.4100 #### [facility] [address] [place], [address] Creatinine [Mass/Vol] 0.87 mg/dL Normal 0.70-1.20 [facility] Comment on above: Performed By: #### L 500.2500, L501.9940, L500.4100 #### [facility] [address] [place], [address] GAP 14 Normal 5-15 [facility] Comment on above: Performed By: #### L 500.2500, L501.9940, L500.4100 #### [facility] [address] [place], [address] GFR/1.73 sq M.predicted among non-blacks MDRD (S/P/Bld) [Vol rate/Area] 102 mL/min/{1.73_m2} Normal >60 [facility] Comment on above: Result Comment: mL/m in/1.73m2 CKD-EPI Creatinine Equation (2020) Performed By: #### L 500.2500, L501.9940, L500.4100 #### [facility] [address] [place], [address] Glucose [Mass/Vol] 85 mg/dL Normal 70-99 [facility] Comment on above: Performed By: #### L 500.2500, L501.9940, L500.4100 #### [facility] [address] [place], [address] Potassium [Moles/Vol] 4.2 mmol/L Normal 3.3-5.1 [facility] Comment on above: Result Comment: Hemo lysis present, Results??could be affected. ?? Performed By: #### L 500.2500, L501.9940, L500.4100 #### [facility] [address] [place], [address] Sodium [Moles/Vol] 139 mmol/L Normal 133-145 [facility] Comment on above: Performed By: #### L 500.2500, L501.9940, L500.4100 #### [facility] [address] [place], [address] Urea nitrogen [Mass/Vol] 14 mg/dL Normal 4-19 [facility] Comment on above: Performed By: #### L 500.2500, L501.9940, L500.4100 #### [facility] [address] [place], [address] Calculated very low density lipoprotein (VLDL) cholesterol measurementOrdered By: John Garcia on 11-07-2024 Calculated very low density lipoprotein (VLDL) cholesterol measurement 22 mg/dL 5-40 [facility] Carbon dioxide, total [Moles /volume] in Central venous bloodOrdered By: John Garcia on 11-07-2024 CO2 [Moles/Vol] 20.7 mmol/L Low 21.0-32.0 [facility] Chloride assayOrdered By: Jason Garcia on 11-07-2024 Chloride [Moles/Vol] 105 mmol/L 98-108 [facility] Glomerular filtration rate ( GFR) estimation/1.73 sq m using serum, plasma, or whole bOrdered By: John Garcia on 11-07-2024 GFR/1.73 sq M.predicted among non-blacks MDRD (S/P/Bld) [Vol rate/Area] 102 mL/min/{1.73_m2} >60 [facility] Comment on above: mL/min/1.73m2 CKD-EP I Creatinine Equation (2020) LDL calc ser/plasOrdered By: John Garcia on 11-07-2024 Cholesterol in LDL [Mass/Vol] 132 mg/dL [facility] Comment on above: Ssnnyvxpbf=905-341 m g/dL & Higher Xggd=026 mg/dL or greaterFriedwald Equation for LDL-C Lipid Profileon 11-07-2024 CHOL:HDL 4.13 Normal [facility] Comment on above: Performed By: #### L 500.2500, L501.9940, L500.4100 #### [facility] [address] [place], [address] Cholesterol [Mass/Vol] 203 mg/dL High <=200 [facility] Comment on above: Result Comment: Chol esterol level, Desirable <200 mg/dL Borderline high cholesterol 200-239 mg/dL High cholesterol >=240 mg/dL Recommendations of the NCEP Adult Treatment Panel for the following risk-cutoff thresholds for the [place] Citizen [place] population. Performed By: #### L 500.2500, L501.9940, L500.4100 #### [facility] [address] [place], [address] Cholesterol in HDL [Mass/Vol] 49 mg/dL Normal [facility] Comment on above: Result Comment: Mony onal Cholesterol Education Program (NCEP) guidelines: <40 mg/dL: Low HDL-cholesterol (major risk factor for CHD) >= 60 mg/dL: High HDL-cholesterol (negative risk factor for CHD) HDL-cholesterol is affected by a number of factors, e.g. smoking, exercise, hormones, sex and age. Performed By: #### L 500.2500, L501.9940, L500.4100 #### [facility] [address] [place], [address] Cholesterol in LDL [Mass/Vol] 132 mg/dL Normal [facility] Comment on above: Result Comment: Bord nhxjrx=694-839 mg/dL Higher Hjgf=874 mg/dL or greater Friedwald Equation for LDL-C Performed By: #### L 500.2500, L501.9940, L500.4100 #### [facility] [address] [place], [address] Cholesterol in VLDL [Mass/Vol] 22 mg/dL Normal 5-40 [facility] Comment on above: Performed By: #### L 500.2500, L501.9940, L500.4100 #### [facility] [address] [place], [address] Triglyceride [Mass/Vol] 112 mg/dL Normal [facility] Comment on above: Result Comment: The drugs N-Acetylcysteine and Metamizole may falsely depress this assay. Normal range: <150 mg/dL Borderline High: 150-199 mg/dL High: 200-499 mg/dL Very High: >500 mg/dL Performed By: #### L 500.2500, L501.9940, L500.4100 #### [facility] [address] [place], [address] PSA,Total- Diagnosticon 10-14 PSA, DIAGNOSTIC 0.30 ng/mL Normal 0.00-4.00 [facility] Comment on above: Result Comment: This test was performed using the [employer] tPSA method. Measured values of a patient??sample can vary depending on the testing procedure used. PSA values determined on patient samples by different testing procedures cannot be used interchangeably. If there is a change in PSA assays while monitoring therapy, sequential testing should be performed to confirm baseline values. Performed By: #### L 500.2500, L501.9940, L500.4100 #### [facility] [address] [facility] [place], [address] Potassium measurement (mass/ volume)Ordered By: John Garcia on 11-07-2024 Potassium (Unsp spec) [Mass/Vol] 4.2 mmol/L 3.3-5.1 [facility] Comment on above: Hemolysis present, R esults could be affected. Screening total cholesterol/ high density lipoprotein (HDL) cholesterol ratioOrdered By: John Garcia on 11-07-2024 Cholesterol.total/Sahra sterol in HDL [Mass ratio] 4.13 {ratio} [facility] Serum creatinine measurement (mass/volume)Ordered By: John Garcia on 11-07-2024 Creatinine [Mass/Vol] 0.87 mg/dL 0.70-1.20 [facility] Serum glucose measurement (m ass/volume)Ordered By: John Garcia on 11-07-2024 Glucose [Mass/Vol] 85 mg/dL 70-99 [facility] Serum or plasma calcium valerie urement (mass/volume)Ordered By: John Garcia on 11-07-2024 Calcium [Mass/Vol] 8.3 mg/dL 7.6-11.0 [facility] Serum or plasma cholesterol in HDL measurement (mass/volume)Ordered By: John Garcia on 11-07-2024 Cholesterol in HDL [Mass/Vol] 49 mg/dL >40 [facility] Comment on above: National Cholesterol Education Program (NCEP) guidelines:<40 mg/dL: Low HDL-cholesterol (major risk factor for CHD)>= 60 mg/dL: High HDL-cholesterol (negative risk factor for CHD)HDL-cholesterol is affected by a number of factors, e.g. smoking, exercise, hormones, sex and age. Serum or plasma cholesterol measurement (mass/volume)Ordered By: John Garcia on 11-07-2024 Cholesterol [Mass/Vol] 203 mg/dL High <201 [facility] Comment on above: Cholesterol level, D esirable <200 mg/dLBorderline high cholesterol 200-239 mg/dLHigh cholesterol >=240 mg/dLRecommendations of the NCEP Adult Treatment Panel for the following risk-cutoff thresholds for the [place] Citizen [place] population. Serum or plasma urea nitroge n measurement (mass/volume)Ordered By: John Garcia on 11-07-2024 Urea nitrogen [Mass/Vol] 14 mg/dL 4-19 [facility] Sodium levelOrdered By: John Garcia on 11-07-2024 Sodium [Moles/Vol] 139 mmol/L 133-145 [facility] Triglycerides measurementOrd ered By: John Garcia on 11-07-2024 Triglyceride [Mass/Vol] 112 mg/dL <199 [facility] Comment on above: The drugs N-Acetylcy steine and Metamizole may falsely depress this assay. Normal range: <150 mg/dLBorderline High: 150-199 mg/dLHigh: 200-499 mg/dLVery High: >500 mg/dL CNOVon 07-13-2024 CNOV Office Visit ([facility] ) YEYO CARUSO ([id number]) 1970 M Date Time Provider Department 07/13/24 12:15 PM JENNI VASQUES [facility] During your visit today, we recorded the following information about you: Temperature Pulse Respiration Blood pressure 97.2 degrees 64/minute 16/minute 120/62 Weight 82.4 kg Jenni Vasques APRN.GLOBAL PROGRAM DIRECTOR 07/13/2024 12:33 PM Signed [facility] Subjective Yeyo Caruso is a [...] right arm. - Mass is described as "hard" and about the size of a golf [...] due to upcoming travel. and Recording using KeyCAPTCHA software for draft documentation of the visit was discussed with the patient/authorized customer care representative; all questions welcomed and answered. Patient/authorized customer care representative agreed to proceed MDM Procedures Allergies [...] Status:Closed by JENNI VASQUES on 07/13/24 Normal [facility] Elbow min 3 Viewson 07-14-19 25 Elbow min 3 Views [facility] Imaging Services [address] [place], [place] [address] Elbow min 3 Views MR#: [id number] Acct: [id number] Name: YEYO CARUSO Rep #: [id number] : 1970 M 54 From: Luis Alberto Awad MD PCP: Dr. John Garcia MD Status: [facility] ER Study: Elbow min 3 Views Date of Exam: 07/13/24 Exam# [id number] Ordering Dr: Ela Fry PROCEDURE: ELBOW MIN 3 VIEWS 07/13/2024 REASON FOR EXAM: RIGHT TECHNIQUE: Three views of the right elbow. COMPARISON: None. FINDINGS: No evidence of acute fracture or dislocation. Mild degenerative changes of the elbow. No elbow joint effusion. Olecranon enthesophyte. RAD/Elbow min 3 Views IMPRESSION: No acute osseous abnormality. Reading Location: [id number] CC: Dr. John Garcia MD; JASON [employer] Sales Representative: Signed Normal [facility] Emergency Department Summary on 07-13-2024 Emergency Department Summary [facility] Medical Records Department [address] [place] [id number] Emergency Department Summary 07/13/24 MR#: [id number] Acct: [id number] Name: YEYO CARUSO Rep #: [id number] : 1970 54 From: Ela MORA PCP: Dr. John Garcia MD Status:[facility] ER Location: ED HPI History of [...] clot. He is not on blood thinners. [facility] Medical History no medical history Home Medications [...] trouble moving (more content not included)... Normal [facility] Basophil percentageon 2021 Chloride [Moles/Vol] 107 mmol/L 98-107 [facility] Work Phone: Glucose [Mass/Vol] 111 mg/dL 74-106 [facility] Work Phone: Comment on above: Fasting Glucose resu lt from 100 to 125 mg/dL suggests IMPAIRED HOMEOSTASIS per A.D.A. criteria. Potassium [Moles/Vol] 3.6 mmol/L 3.5-5.1 [facility] Work Phone: Sodium [Moles/Vol] 142 mmol/L 136-145 [facility] Work Phone: WBC (Bld) [#/Vol] 4.3 10*3/uL 4.4-11.0 [facility] Work Phone: Blood erythrocytes count (nu mber/volume)on 09-28-2021 RBC (Bld) [#/Vol] 4.56 10*6/uL 4.6-6.[address] [facility] Work Phone: Blood hemoglobin measurement (mass/volume)on 09-28-2021 Hemoglobin (Bld) [Mass/Vol] 14.8 g/dL 13.0-16.5 [facility] Work Phone: Blood platelet mean volumeon 09-28-2021 Platelet mean volume (Bld) [Entitic vol] 10.0 fL 6.2-12.0 [facility] Work Phone: Determination of erythrocyte mean corpuscular volume (MCV)on 09-28-2021 MCV (RBC) [Entitic vol] 96.1 fL 80-94 [facility] Work Phone: Hematocrit Auto (Bld) [Volum e fraction]on 09-28-2021 Hematocrit (Bld) [Volume fraction] 43.8 % 40-54 [facility] Work Phone: Laboratory - Chemistry and C hemistry - challengeon 09-28-2021 CO2 [Moles/Vol] 30.0 mmol/L 21.0-32.0 [facility] Work Phone: Urea nitrogen/Creatinine [Mass ratio] 22.5 mg/mg 10-20 [facility] Work Phone: Laboratory - Hematology and Cell countson 09-28-2021 Erythrocyte distribution width (RBC) [Entitic vol] 44.1 fL 35.1-43.9 [facility] Work Phone: Erythrocyte distribution width (RBC) [Ratio] 12.6 % 11.6-14.6 [facility] Work Phone: MCH (RBC) [Entitic mass] 32.5 pg 27.0-32.0 [facility] Work Phone: MCHC Auto (RBC) [Mass/Vol]on 09-28-2021 MCHC (RBC) [Mass/Vol] 33.8 g/dL 32-36 [facility] Work Phone: No Panel Informationon 09-28 Estimated GFR (MDRD) Amer 116 mL/min >60 [facility] Work Phone: Comment on above: GFR Calc Estimated GFR (MDRD) Non-Af Amer 96 mL/min >60 [facility] Work Phone: Comment on above: Non- GFR Calc Platelets bldon 09-28-2021 Platelets (Bld) [#/Vol] 219 10*3/uL 150-450 [facility] Work Phone: Serum or plasma calcium valerie urement (mass/volume)on 09-28-2021 Calcium [Mass/Vol] 8.9 mg/dL 8.5-10.1 [facility] Work Phone: Serum or plasma creatinine m easurement (mass/volume)on 09-28-2021 Creatinine [Mass/Vol] 0.89 mg/dL 0.70-1.30 [facility] Work Phone: Comment on above: The validity of the calculated GFR & GFRAA in patients over 70 years has not been determined. Clinical correlation is essential. Serum or plasma urea nitroge n measurement (mass/volume)on 09-28-2021 Urea nitrogen [Mass/Vol] 20 mg/dL 7-18 [facility] Work Phone: Thin prep Papanicolaou smear with manual screeningon 09-28-2021 Thin prep Papanicolaou smear with manual screening 5 5-15 [facility] Work Phone: CNPBianca 03-30-2021 ANGELN Telephone ([employer]) YEYO CARUSO ([id number]) 1970 Date Time Provider Department 03/30/21 JUSTYNA CHAPARRO During your visit today, we recorded the following information about you: Carmela Marcus Wheeler 03/30/2021 8:14 AM Signed Pt confirmed his appt with Dr. Galan in [facility] 04/28/21 @ 3:00. Jennie Allergies As of [...] Fertility testing [Z31.41] 05/15/2014 Encounter Status:Closed by MARCUS WHEELERTOÑAA on 03/30/21 Normal [facility] Vital Signs Date Time Vital Sign Value Performing Clinician Faci lity 07-13-2024 14:00-0400 Body temperature 97.5 [degF] Dr. John Garcia MD Work Phone: [facility] 07-13-2024 14:00-0400 Diastolic blood pressure 78 mm[Hg] Dr. John Garcia MD Work Phone: [facility] 07-13-2024 14:00-0400 Heart rate 58 /min Dr. John Garcia MD Work Phone: [facility] 07-13-2024 14:00-0400 SaO2% (BldA) [Mass fraction] 99 % Dr. John Garcia MD Work Phone: [facility] 07-13-2024 14:00-0400 Systolic blood pressure 138 mm[Hg] Dr. John Garcia MD Work Phone: [facility] 07-13-2024 12:55-0400 Body height 165.[address] John Garcia MD Work Phone: [facility] 07-13-2024 12:55-0400 Body mass index (BMI) [Ratio] 30.2 kg/m2 Dr. John Garcia MD Work Phone: [facility] 07-13-2024 12:55-0400 Body weight 82.[address] John Garcia MD Work Phone: [facility] 07-13-2024 12:20-0400 Body mass index (BMI) [Ratio] 29.32 kg/m2 Jenni Vasques APRN.GLOBAL PROGRAM DIRECTOR Work Phone: [facility] 07-13-2024 12:20-0400 Body temperature 97.2 [degF] Jenni Vasques APRN.GLOBAL PROGRAM DIRECTOR Work Phone: [facility] 07-13-2024 12:20-0400 Body weight 82.4 kg Jenni Vasques APRN.GLOBAL PROGRAM DIRECTOR Work Phone: [facility] 07-13-2024 12:20-0400 Diastolic blood pressure 62 mm[Hg] Jenni Vasques APRN.GLOBAL PROGRAM DIRECTOR Work Phone: [facility] 07-13-2024 12:20-0400 Heart rate 64 /min Jenni Vasques APRN.GLOBAL PROGRAM DIRECTOR Work Phone: [facility] 07-13-2024 12:20-0400 Respiratory rate 16 /min Dr. John Garcia MD Work Phone: [facility] 07-13-2024 12:20-0400 SaO2% (BldA) [Mass fraction] 96 % Jenni Vasques APRN.GLOBAL PROGRAM DIRECTOR Work Phone: [facility] 07-13-2024 12:20-0400 Systolic blood pressure 120 mm[Hg] Jenni Vasques APRN.GLOBAL PROGRAM DIRECTOR Work Phone: [facility] Encounters Encounter Date Encounter Type Care Provider Facility Start: 01-16-2025 ambulatory Gilbert Lima Faci lity:[facility] Start: 12-03-2024 Encounter for genera l adult medical examination without abnormal findings John Garcia [facility] Start: 11-07-2024 End: 11-07-[address] John Garcia MD Work Phone: -Laboratory [facility] Start: 11-07-2024 End: 11-07-[address] John Garcia MD -Laboratory [facility] Start: 11-07-2024 End: 11-07-2024 ambulatory John Garcia Facility:[facility] Start: 07-13-2024 End: 07-13-2024 Emergency department patient visit Dr. John Garcia MD Work Phone: -Emergency Department Work Phone: Start: 07-13-2024 End: 07-13-2024 Patient encounter procedure Jenni Vasques APRN.GLOBAL PROGRAM DIRECTOR Work Phone: [facility] Comment on above: Mass of right upper extremity (Primary Dx) Start: 07-13-2024 End: 07-13-2024 ambulatory JENNI JAMES Facility:[facility] Start: 09-28-2021 End: 09-28-2021 ambulatory [facility] Work Phone: Start: 09-28-2021 End: 09-28-2021 Patient encounter procedure [facility]-Pulmonary Services/Neurology Procedures Date Procedure Procedure Detail Performing Clinician Start: 11-07-2024 Prostate specific an tigen measurement Dr. John Garcia MD Work Phone: Comment on above: This test was perfor med using the [employer] tPSA method. Measured values of a patient sample can vary depending on the testing procedure used. PSA values determined on patient samples by different testing procedures cannot be used interchangeably. If there is a change in PSA assays while monitoring therapy, sequential testing should be performed to confirm baseline values. Start: 07-13-2024 Plain x-ray of elbow Dr Erich Garcia MD Work Phone: Plan of Treatment Date Care Activity Detail Author Start: 10-13-2024 Influenza vaccination Influenza Vaccine (Season Ended) [facility] Start: 07-13-2024 [facility] Start: 10-14-2023 Covid-19 Vaccine ( season) Covid-19 Vaccine ( season) [facility] Start: 04-25-2019 Pneumococcal Vaccine: 50+ (1 of 1 - PCV) Pneumococcal Vaccine: 50+ (1 of 1 - PCV) [facility] Start: 04-25-2019 Shingrix Vaccine (1 of 2) Shingrix Vaccine (1 of 2) [facility] Start: 07-29-2017 Diabetes Screening Diabetes Screening [facility] Start: 2014 Prostate specific antigen measurement Prostate Cancer Screening Discussion [facility] Start: 2014 Screening for malignant neoplasm of colon [facility] Start: 2004 Lipid panel Lipid Screening [facility] Start: 1988 Hepatitis B Vaccine (1 of 3 - 19+ 3-dose series) Hepatitis B Vaccine (1 of 3 - 19+ 3-dose series) [facility] Start: 1988 Urine microalbumin profile DTaP,Tdap,Td Vaccine (1 - Tdap) [facility] Start: 04-25-1987 Anxiety Screening Anxiety Screening [facility] Start: 04-25-1987 Depression Screening Depression Screening [facility] Start: 04-25-1987 Hepatitis C screening Hepatitis C Screening [facility] Start: 04-25-1987 HIV screening HIV Screening [facility] Patient Education ED Contusion, Elbow ED Hematoma [facility] Work Phone: Patient referral [facility] Work Phone: Payers Date Payer Category Payer Self-pay [id number] 2023 [employer] Blue Shield BLUE ACCE SS PPO [id number] 2023 Unknown [id number] 2015 Unknown [id number] Unknown [id number] Unknown [id number] Unknown [id number] Unknown [id number] Social History Date Type Detail Facility Start: 03-25-2021 Tobacco smoking stat us RIIS Unknown if ever smoked [facility] Work Phone: Start: 1970 Sex Assigned At Male [facility] Start: 07-13-2024 End: 07-13-2024 Tobacco smoking status NHIS Never smoked tobacco (finding) [facility] Start: 03-29-2021 Tobacco use and exposure Former smokeless tobacco user [facility] Start: 03-29-2021 Alcoholic beverage intake Current drinker of alcohol (finding) [facility] Start: 01-21-2020 End: 03-29-2021 History of Social function [facility] Start: 01-21-2020 End: 03-29-2021 Tobacco use panel [facility] National Score (1-10 0), lower number is lower risk Not on file [facility] Start: 03-29-2021 Alcohol Comment Occasionally [facility] Start: 04-27-2021 Gender identity Identifies as male gender (finding) [facility] Start: 04-27-2021 Sexual orientation Heterosexual (fin ding) [facility] Functional Status Date Assessment Result Facility 07-29-2014 Are you deaf, or do you have serious difficulty hearing Yes 07/29/2014 1:22 PM EDT Yadira Sosa Ma Yes [facility] 07-29-2014 Are you blind, or do you have serious difficulty seeing, even when wearing glasses No 07/29/2014 1:22 PM EDT Yadira Sosa Ma No [facility] 07-29-2014 Do you have serious difficulty walking or climbing stairs No 07/29/2014 1:22 PM EDT Yadira Sosa Ma No [facility] 07-29-2014 Do you have difficul ty dressing or bathing No 07/29/2014 1:22 PM EDT Yadira Sosa Ma No [facility] 07-29-2014 Because of a physica l, mental, or emotional condition, do you have difficulty doing errands alone such as visiting a physician's office or shopping No 07/29/2014 1:22 PM EDT Yadira Sosa Ma No [facility] Mental Status Date Assessment Result Facility 07-29-2014 Because of a physica l, mental, or emotional condition, do you have serious difficulty concentrating, remembering, or making decisions No 07/29/2014 1:22 PM EDT Yadira Sosa Ma No [facility] Radiology Diagnostic study note 07-13-2024 Note Date & Type Note Facility 07-13-2024 Radiology Diagnostic study note [facility] Imaging Services [address] [place] [address] [id number] Elbow min 3 Views MR#: [id number] Acct: [id number] Name: YEYO CARUSO Rep #: [id number] : 1970 M 54 From: Monroe Awad MD PCP: Dr. John Garcia MD Status: REG E R Study:Elbow min 3 Views Date of Exam: Exam# [id number] Ordering Dr: Ela Gay PROCEDURE: ELBOW MIN 3 VIEWS 07/13/2024 REASON FOR EXAM: RIGHT TECHNIQUE: Three views of the right elbow. COMPARISON: None. FINDINGS: No evidence of acute fracture or dislocation. Mild degenerative changes of the elbow. No elbow joint effusion. Olecranon enthesophyte. RAD/Elbow min 3 Views IMPRESSION: No acute osseous abnormality. Reading Location: [id number] CC: Dr. John Garcia MD; JASON Rasheed ~ Footwear Sales Representative: Signed [facility] Progress note 07-13-2024 Note Date & Type Note Facility 07-13-2024 Note HNO ID: [id number] Author: JENNI VASQUES APRN.GLOBAL PROGRAM DIRECTOR Service: ? Author Type: Nurse Practitioner Type: Progress Notes Filed: 07/13/2024 12:33 Note Text: [facility] Subjective Yeyo Caruso is a 54 [...] right arm. - Mass is described as "hard" and about the size of a golf [...] due to upcoming travel. and Recording using KeyCAPTCHA software for draft documentation of the visit was discussed with the patient/authorized customer care representative; all questions welcomed and answered. Patient/authorized customer care representative agreed to proceed MDM Procedures [facility] History of Present illness Narrative 07-13-2024 Jenni Vasques APRN.[facility] - 07/13/2024 12:32 PM EDT Note Date & Type Note Facility 07-13-2024 History of Presen t illness Narrative [facility] Subjective Yeyo Caruso is a [...] right arm. - Mass is described as "hard" and about the size of a golf [...] due to upcoming travel. and Recording using KeyCAPTCHA software for draft documentation of the visit was discussed with the patient/authorized customer care representative; all questions welcomed and answered. Patient/authorized customer care representative agreed to proceed MDM Procedures documented in this encounter [facility] Evaluation note Note Date & Type Note Facility Evaluation note No assessment information availa ble [facility] Work Phone: Evaluation note Note Date & Type Note Facility Evaluation note Diagnosis Mass of right upper extremity- Primary documented in this encounter [facility] Discharge instructions Note Date & Type [...] get better over the next several weeks. [facility] Work Phone: Reason for referral (narrative) Note Date & Type Note Facility Reason for referral (narrative) No reason for referral information available [facility] Work Phone: Summary Purpose Family History No Family History Records FoundNo Family History Records FoundNo Family History Records Found Advance Directives Advance Directive Response Recorded Date/ Time Advance Directives No October 06, 2015 10:18am Living Will No March 25 12:33pm Power of It Application Support Analyst No March 25, 2021 12:33pm Advance Directive Response Recorded Date/ Time Do you have a Healthcare Power of It Application Support Analyst? No July 13, 2024 2:00pm Advance Directives No October 06, 2015 10:18am Advance Directive Response Recorded Date/ Time Advance Directives No October 06, 2015 9:18am Chief Complaint and Reason for Visit Chief Complaint PRE OP Chief Complaint Admit Date ELBOW SWELLING July 13, 2024 12:55 pm Additional Source Comments (unrecognized sect ion and content) No Status Records FoundNo Status Records FoundNo Status Records Found INFORMATION SOURCE (unrecogn ized section and content) DATE CREATED AUTHOR 03/30/2021 [facility] DATE CREATED AUTHOR AUTHOR'S ORGANIZ ATION 07/14/2024 [facility] DATE CREATED AUTHOR AUTHOR'S ORGANIZ ATION 12/16/2024 [facility] Goals (unrecognized section and content) Goals may be documented in a n alternate sectionGoals may be documented in an alternate sectionGoals may be documented in an [...] July 13, 2024 End: July 13, 2024 Team Status: Active Member Role/Relationship Status Dates Dr. John Garcia MD Primary care physician Active Team Status: Inactive Member Role/Relationship Status Dates Dr. John Garcia MD Primary care physician Active Start: November 07, 2024 End: November 07, 2024 Dr. John Garcia MD Attending physician Active Start: November 07, 2024 End: November 07, 2024 Dr. John Garcia MD Referring Provider Active Start: November 07, 2024 End: November 07, 2024 Source Comments (unrecognize d section and content) In the event this informatio n is protected by the Federal Confidentiality of Alcohol and Drug Abuse Patient Records regulations: The Federal rules restrict any use of the information to criminally investigate or prosecute any alcohol or drug abuse patient.[facility] Reason for Visit (unrecogniz ed section [...] BE BASED ON THE PRIMARY CLINICAL RECORDS. [facility]. provides no warranty or guarantee of the accuracy or completeness of information in this document.
[2025-01-16] MEDS: Lactated Ringers 1,000 ML 15 ML IV (09:15)
--- NOTE | 2025-01-16 09:22 | HP.PCM_ITS ---
HPI - General HPI Narrative MARLIN ARREOLA, is a 54 M who presents for screening colonoscopy. His last colonoscopy was over 10 years ago. He denies abdominal pain or blood in the stool. No family history of colon cancer. 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 Social History household members: spouse and children Smoking Status: Never smoker alcohol intake: current alcohol intake frequency: 0-2 drinks per day Past Medical/Surgical History Planned Operation Planned Operative Procedure(s): COLONOSCOPY S.O.S: No Previous Hospitalizations/Surgeries HX Hospitalizations: No HX of Surgeries: LEFT INDEX AND RIGHT MIDDLE FINGER SURGERY Any Problems With Anesthesia: No You/Your Family Experience Fever (Hyperthermia) With Anes: No Cholinesterase deficiency: No Cardiovascular Hx Chest Pain within Last 2 months: No Hx of Irregular Heartbeat and/or Afib: No Hx Heart Attack: No Hx Congestive Heart Failure: No Hx Rheumatic Fever: No Hx Hypertension: No Hx Internal Defibrillator: No Hx Pacemaker: No Hx Cardiac Catheterization: No Hx Cardiac Surgery/Stents/Etc.: No Hx Stress Test: No Hx Pain in Legs when Walking/Leg Cramps: Yes (RIGHT LEG PAIN) Respiratory Chronic Cough: No HX of Shortness of Breath: No Hoarseness: No Hx Chronic Obstructive Pulmonary Disease (COPD): No Hx Asthma: No Hx Emphysema: No Hx Sleep Apnea: No CPAP: No BIPAP: No Hx Respiratory Tract Infection/Cold (presently): No Do You Snore Loudly (louder than talking or can be heard): No Do You Often Feel Tired/ Fatigued/ Sleepy Dring Daytime?: No Has Anyone Observed You Stop Breathing During Sleep?: No Result (for STOP score): Negative Hx Smoking: Yes Smoking Status: Never smoker Gastrointestinal Controlled With Meds: Yes Hx Gastrointestinal Disorders: No Hx Gastrointestinal Bleed: No Hx Ulcer: No Hx Hiatal Hernia: No Difficulty Chewing/Swallowing: No Special diet followed at home: No Hx Unplanned Weight Loss of 20#: No HX Unplanned Weight Gain of 20#: No Neurological Hx Seizures: No HX Syncope/Blackout Spells/Unconsciousness: No Hx Transient Ischemic Attacks (TIA): No Hx Multiple Sclerosis: No Hx Parkinson's Disease: No Hx Head/Neck Injury: No Hx Headaches: No Hx Back Injury/Pain: Yes (LOW BACK PAIN WITH RIGHT LEG PAIN AND NUMBNESS,TINGLING) Recent Onset of Speech Difficulty: No Restless Legs: No Does patient have nerve stimulator: No Blood Disorder Hx Leukemia: No Bleeding Tendencies: No Hx Deep Vein Thrombosis: No Hx High Cholesterol: No Blood Transmitted Disease: No Hx Hepatitis: No Hx Cirrhosis: No Hx Anemia: No Hx Blood Disorders: No Genitourinary Hx Renal Disease: No Musculoskeletal Hx Arthritis: Yes Hx Rheumatoid Arthritis: No Hx Gout: No Recent Onset of an Orthopedic Problem: Yes (BACK) Endocrine Hx Diabetes: No Thyroid Disease: No Hx Steroid Therapy: No Psycho/Social Hx Substance Use: No Hx Alcohol Use: Yes (OCC) Hx Anxiety: No Hx Depression: No Mental Illness: No Hx Dementia: No Miscellaneous Hx Cancer: No Recent Exposure to Contagious Disease: No Hx of C-Diff: No Any Loose Teeth: No (FULL SET OF DENTURES) Allergies Penicillins Adverse Reaction (Verified 01/16/25 09:08) Other MAKES ME SLEEPY Discharge Is Pt Admitted From a Prison, or a Shelter: No Who Could Help: [place] After D/C, Where Do you Plan to Go: Return Home Vital Signs Vital Signs Vital Signs: 01/16/25 09:12 01/16/25 09:12 01/16/25 09:12 Temperature 97.1 F L Temperature Source Temporal Pulse Rate 61 Respiratory Rate 16 Respiratory Pattern Normal Blood Pressure 114/81 H Blood Pressure Mean 92 Blood Pressure Source Monitor Blood Pressure Position Semi-Fowlers Blood Pressure Location Right Arm Baseline BP 114/81 Pulse Ox 94 Oxygen Delivery Method Room Air Weight Weight: 170 lb Body Mass Index (BMI) 28.3 Physical Exam Const alert and oriented x3 HEENT normocephalic Eyes PERRL Resp normal respiratory effort and normal air movement Cardio regular rate and regular rhythm GI soft to palpation, non-tender and non-distended Extremity normal to inspection Assessment & Plan Assessment/Plan (1) Screen for colon cancer: PLAN: I explained endoscopy in detail to the patient. I explained the risks including but not limited to stroke or heart attack with anesthesia, perforation of the GI tract, bleeding, infection. I explained that any of these could necessitate further emergency surgery. The patient understands and all questions were answered sufficiently. The patient wishes to proceed with procedure. Gilbert Lima MD Pager: [facility] [address] [place] [address], [address] [place] [address] Office: Surgery Risks - Colonoscopy Risks Include but are not Limited To: Risks include but are not limited to: Bleeding, perforation requiring further surgery, inability to complete colonoscopy requiring barium enema.
--- NOTE | 2025-01-16 09:56 | PCM.POST.ANE ---
Anesthesia: Postop Eval I Current Vital Signs Temperature: 97 F Pulse Rate: 68 Blood Pressure: 90/71 Respiratory Rate: 17 Pulse Ox: 99 Oxygen Delivery Method: Room Air Assessment Airway patent: Yes Spontaneous unlabored respirations: Yes Mental status: Awake and Calm nausea: No Vomiting: No Anesthesia Complication: No Fluid Hydration Crystalloid volume administer (ml): 300 Total IV fluid infused: 300 Progress Note Anesthesia document: Postop Eval 1 completed: Yes
--- NOTE | 2025-01-16 10:00 | OP.PROVAT_ITS ---
01/16/2025 John Garcia MD [address] [id number] Re : Colonoscopy procedure for Yeyo Caruso Dear Dr. Garcia This procedure was performed on Thursday, January 16, 2025. My impressions and recommendations are as follows: Impressions : - The entire examined colon is normal on direct and retroflexion views. - No specimens collected. Recommendations : - Discharge patient to home. - Resume previous diet. - Continue present medications. - Repeat colonoscopy in 10 years for screening purposes. My findings are described in the full procedure note, which is enclosed. If I can be of further assistance, please feel free to contact me at Doctor phone number(s): , Work: . Sincerely, Gilbert Lima MD 01/16/2025 9:59:59 AM This report has been signed electronically.
--- NOTE | 2025-01-16 10:00 | OP.COLON_ITS ---
Patient Name: Yeyo Caruso Procedure Date: 01/16/2025 9:30 AM Date of : 1970 Age: 54 Procedure: Colonoscopy Indications: Screening for colorectal malignant neoplasm Providers: Gilbert Lima MD Referring MD: John Garcia MD Medicines: Propofol per Anesthesia Patient Profile: This is a 54 year old male. Refer to note in patient chart for documentation of history and physical. Last Colonoscopy: more than 10 years ago. Complications: No immediate complications. Procedure: Pre-Anesthesia Assessment: - Prior to the procedure, a History and Physical was performed, and patient medications and allergies were reviewed. The patient's tolerance of previous anesthesia was also reviewed. The risks and benefits of the procedure and the sedation options and risks were discussed with the patient. All questions were answered, and informed consent was obtained. Prior Anticoagulants: The patient has taken no anticoagulant or antiplatelet agents. After reviewing the risks and benefits, the patient was deemed in satisfactory condition to undergo the procedure. After I obtained informed consent, the scope was passed under direct vision. Throughout the procedure, the patient's blood pressure, pulse, and oxygen saturations were monitored continuously. The colonoscope was introduced through the anus and advanced to the cecum, identified by appendiceal orifice and ileocecal valve. The colonoscopy was performed without difficulty. The patient tolerated the procedure well. The quality of the bowel preparation was good. The ileocecal valve, appendiceal orifice, and rectum were photographed. Scope In: 9:40:09 AM Scope Withdrawal Time 0 hours 6 minutes 6 seconds Scope Out: 9:53:58 AM Total Procedure Duration Time 0 hours 13 minutes 49 seconds Findings: The entire examined colon appeared normal on direct and retroflexion views. Impression: - The entire examined colon is normal on direct and retroflexion views. - No specimens collected. Recommendation: - Discharge patient to home. - Resume previous diet. - Continue present medications. - Repeat colonoscopy in 10 years for screening purposes. Procedure Code(s): --- Professional --- 99188, Colonoscopy, flexible; diagnostic, including collection of specimen(s) by brushing or washing, when performed (separate procedure) Diagnosis Code(s): --- Professional --- Z12.11, Encounter for screening for malignant neoplasm of colon CPT copyright 2021 [employer]. All rights reserved. The codes documented in this report are preliminary and upon nurse sane review may be revised to meet current compliance requirements. Gilbert Lima MD 01/16/2025 9:59:59 AM This report has been signed electronically. Number of Addenda: 0 Note Initiated On: 01/16/2025 9:30 AM
--- NOTE | 2025-01-16 10:02 | POSTOPAN2_ITS ---
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 Spontaneous unlabored Yes 01/16/25 09:57 FOOD SERVICE WORKER.MDOT respirations Mental status Awake,Calm 01/16/25 09:57 FOOD SERVICE WORKER.MDOT nausea No 01/16/25 09:57 FOOD SERVICE WORKER.MDOT Vomiting No 01/16/25 09:57 FOOD SERVICE WORKER.MDOT Anesthesia Postop Eval I: Fluid Summary Crystalloid volume administer 300 01/16/25 09:57 FOOD SERVICE WORKER.MDOT (ml) Colloids volume administered ( ml) Blood Product volume administered (ml) Total IV fluid infused 300 01/16/25 09:57 FOOD SERVICE WORKER.MDOT Anesthesia Postop Eval I: Summary Notes Anesthesia Complication No 01/16/25 09:57 FOOD SERVICE WORKER.MDOT Anesthesia Complication Comment: Post-operative progress note Anesthesia: Postop Eval II Evaluation Mental status: Awake and Calm Pain Level: 0 nausea: No Vomiting: No Complications Anesthesia Complication: No
--- NOTE | 2025-01-16 10:02 | PCM.POSTANE2 ---
Anesthesia Postop Eval I Sum Postop Eval Completion status Anesthesia document: Postop Eval 1 completed: Yes Anesthesia Postop Eval I Summary Anesthesia Postop Eval I Summary: Anesthesia Postop Eval I: Assessment Summary Airway patent Yes 01/16/25 09:57 MANAGER CONSTRUCTION.MDOT Spontaneous unlabored Yes 01/16/25 09:57 MANAGER CONSTRUCTION.MDOT respirations Mental status Awake,Calm 01/16/25 09:57 MANAGER CONSTRUCTION.MDOT nausea No 01/16/25 09:57 MANAGER CONSTRUCTION.MDOT Vomiting No 01/16/25 09:57 MANAGER CONSTRUCTION.MDOT Anesthesia Postop Eval I: Fluid Summary Crystalloid volume administer 300 01/16/25 09:57 MANAGER CONSTRUCTION.MDOT (ml) Colloids volume administered ( ml) Blood Product volume administered (ml) Total IV fluid infused 300 01/16/25 09:57 MANAGER CONSTRUCTION.MDOT Anesthesia Postop Eval I: Summary Notes Anesthesia Complication No 01/16/25 09:57 MANAGER CONSTRUCTION.MDOT Anesthesia Complication Comment: Post-operative progress note Anesthesia: Postop Eval II Evaluation Mental status: Awake and Calm Pain Level: 0 nausea: No Vomiting: No Complications Anesthesia Complication: No
== END 2025-01-16 10:46 | disposition home or self-care (01) ==
LOC: EN 08:47 → AC 08:52
PROVIDERS: PCP Family Medicine; Referring Provider Family Medicine; Visit Provider Surgery
PROC: 0DJD8ZZ Inspection of Lower Intestinal Tract, Via Natural or Artificial Opening Endoscopic (ICD-10-PCS; CPT 45378; principal; 2025-01-16 09:25)
DX: Z12.11 Encounter for screening for malignant neoplasm of colon (principal); Z79.899 Other long term (current) drug therapy
CPT/HCPCS: 45378

== ENCOUNTER → 2025-01-28 | Outpatient (CLI) | payer BC, SELFPAY ==
--- NOTE | 2025-01-28 16:57 | MRI_ITS ---
PROCEDURE: MRI SPINE LUMBAR (ROUTINE) 01/28/2025 REASON FOR EXAM: PAIN X3-4MONTHS, SPONDYLOLISTHESIS, LEFT LEG PAIN TECHNIQUE: Procedure Code: MRISPL Modality: MR Procedure: SPINE LUMBAR (ROUTINE) Multiplanar and multisequential MRI of the lumbar spine was performed without contrast. COMPARISON: Lumbar spine radiographs 01/13/2025. FINDINGS: No evidence of acute fracture. Vertebral body heights are preserved. Chronic bilateral L5 pars defects with associated grade 1 spondylolisthesis of L5 on S1 by roughly 5 mm. No suspicious marrow lesion. Multilevel spondylotic changes with varying degrees of disc desiccation and narrowing, degenerative endplate signal changes including active degenerative disc disease with marrow edema at the L1-2 level, scattered Schmorl's nodes, anterior osteophytosis, and hypertrophic facet arthropathy. Conus appears normal in signal and morphology, terminating at T12-L1. Normal appearance of the cauda equina. No significant abnormality in the visualized paravertebral or retroperitoneal soft tissues. T10-T11: Dorsal disc bulge indents the ventral thecal sac. No significant spinal canal or neural foraminal narrowing on either side. T11-T12: Dorsal disc bulge indents the ventral thecal sac. No significant spinal canal or neural foraminal narrowing on either side. T12-L1: Dorsal disc bulge with a superimposed left paracentral small disc extrusion indenting the ventral thecal sac. No significant spinal canal narrowing. Mild bilateral neural foraminal narrowing. L1-2: Dorsal disc bulge and ligamentum flavum/facet hypertrophy results in mild spinal canal narrowing, and mild bilateral neural foraminal narrowing. L2-3: Dorsal disc bulge with a superimposed small right paracentral disc extrusion, and ligamentum flavum/facet hypertrophy results in moderate spinal canal narrowing, with effacement of the lateral recesses. Moderate bilateral neural foraminal narrowing. L3-4: Dorsal disc bulge and ligamentum flavum/facet hypertrophy results in moderate spinal canal narrowing with effacement of the lateral recesses. Mild-moderate bilateral foraminal narrowing. L4-5: Dorsal disc bulge and ligamentum flavum/facet hypertrophy results in mild- moderate spinal canal narrowing with effacement of the lateral recesses. Mild-moderate bilateral foraminal narrowing. L5-S1: Partially uncovered dorsal disc bulge secondary to grade 1 spondylolisthesis of L5, and ligamentum flavum/facet hypertrophy results in advanced bilateral neural foraminal stenosis, but no substantial spinal canal stenosis at this level. MRI/Spine Lumbar (Routine) IMPRESSION: Multilevel spondylotic changes as described. Notably there are active Modic ty pe 1 degenerative endplate signal changes at L1-2 with marrow edema. Multilevel disc bulging resulting in varying degrees of mild-moderate spinal ca nal narrowing, but no high-grade spinal canal stenosis or cauda equina impingement. Chronic bilateral L5 pars defects with grade 1 spondylolisthesis of L5, resulti ng in advanced bilateral neural foraminal stenosis at L5-S1. Mild-moderate neural foraminal narrowing at the remaining levels. Reading Location: [id number]
== END | disposition home or self-care (01) ==
LOC: MRI 16:55
PROVIDERS: PCP Family Medicine; Referring Provider Student in an Organized Health Care Education/Training Program; Visit Provider Student in an Organized Health Care Education/Training Program
DX: M54.16 Radiculopathy, lumbar region (principal); M43.17 Spondylolisthesis, lumbosacral region; M51.362 Other intervertebral disc degeneration, lumbar region with discogenic back pain and lower extremity pain
CPT/HCPCS: 72148